=== PATIENT | female | born 1960 | race Caucasian/White ===

== ENCOUNTER → 2016-10-16 | Outpatient (CLI) | payer BC ==
--- NOTE | 2016-10-16 13:58 | MAMMOGRAPHY REPORT ---
UNILATERAL RIGHT DIGITAL DIAGNOSTIC MAMMOGRAM WITH CAD: 10/16/2016 CLINICAL HISTORY: 6 Month Follow-up Right. TECHNIQUE: Current study was also evaluated with a Computer Aided Detection (CAD) system. Right CC and MLO views and spot magnification right cc and ML views were obtained. COMPARISON: Comparison is made to exams dated: 04/03/2016 mammogram, 04/01/2016 mammogram, 02/28/2015 m ammogram, 02/22/2014 mammogram, 02/17/2013 mammogram, and 02/11/2012 mammogram - [facility] enter. BREAST COMPOSITION: There are scattered areas of fibroglandular density in the right breast. FINDINGS: Spot magnification views of the right breast again demonstrate a small faint 4 mm cluster of amorphous calcifications in the right upper outer quadrant. The calcifications appear similar t o other loosely grouped calcifications within the right upper outer quadrant which have been stable compared to prior exams. This cluster is stable on spot magnification views dated 04/03/2016. A bio psy marker clip is again noted in the right upper outer quadrant; the patient reports that the biops y was performed for calcifications although those images are not available for review. The calcific ations are probably benign given the similar appearance to other stable calcifications and given the stability for 6 months. The remainder of the right breast is stable compared to prior exams, without suspicious masses, calc ifications, or areas of architectural distortion noted. IMPRESSION: ACR-BI-RADS CATEGORY 3: PROBABLY BENIGN Small cluster of calcifications in the right upper outer quadrant is stable compared to the March 24 exam and is probably benign. Recommend bilateral diagnostic mammograms in 6 months, to reevalua te the right breast calcifications and for routine mammography of the left breast. The patient has been verbally notified of the results. Approximately 10% of breast cancers are not detected with mammography. A negative mammographic repor t should not delay biopsy if a clinically suggestive mass is present. Zhanna Mcfarlane M.D. /:10/16/2016 11:51:19 Pick Up Operator: Kim VERA)(Nick), [facility] letter sent: Follow Up Recommended 3 BI-RADS Code: ACR-BI-RADS Category 3: Probably Benign
== END | disposition home or self-care (01) ==
LOC: C.MAMM 10:55
PROVIDERS: ATTEND Family Medicine
DX: R92.1 Mammographic calcification found on diagnostic imaging of breast (principal)

== ENCOUNTER → 2017-04-16 | Outpatient (CLI) | payer BC ==
--- NOTE | 2017-04-16 13:35 | MAMMOGRAPHY REPORT ---
BILATERAL DIGITAL DIAGNOSTIC MAMMOGRAM TOMOSYNTHESIS WITH CAD: 04/16/2017 CLINICAL HISTORY: Interval follow-up of right breast calcifications. TECHNIQUE: Breast tomosynthesis in addition to standard 2D mammography was performed. Current study was also evaluated with a Computer Aided Detection (CAD) system. Bilateral CC and MLO 2-D and tomosy nthesis images and spot magnification right cc and ML views were obtained. COMPARISON: Comparison is made to exams dated: 10/16/2016 mammogram, 04/03/2016 mammogram, 04/01/2016 m ammogram, 02/28/2015 mammogram, 02/22/2014 mammogram, and 02/17/2013 mammogram - [facility]. BREAST COMPOSITION: There are scattered areas of fibroglandular density in both breasts. FINDINGS: Spot magnification views of the right breast again demonstrate loosely grouped amorphous ca lcifications within the right upper outer quadrant. The calcifications are stable on spot magnificat ion views dating back to the March 2016 exam. A biopsy marker clip is seen within the dominant grou ping of calcifications; the patient reported that the biopsy was performed for calcifications althoug h those images are not available for review. Given the stability on spot magnification views and giv en that a prior biopsy was performed which yielded benign pathology, the calcifications are considere d benign. The remainder of both breasts are stable compared to prior exams, without suspicious masses, calcific ations, or areas of architectural distortion noted. IMPRESSION: ACR BI-RADS CATEGORY 2: BENIGN There is no mammographic evidence of malignancy in either breast. A 1 year screening mammogram is rec ommended. The patient has been verbally notified of the results. Approximately 10% of breast cancers are not detected with mammography. A negative mammographic report should not delay biopsy if a clinically suggestive mass is present. Zhanna Mcfarlane M.D. /:04/16/2017 10:47:57 Gold Burnisher: Marianela VERA)(Nick), [facility] letter sent: Normal 1/2 BI-RADS Code: ACR BI-RADS Category 2: Benign
== END | disposition home or self-care (01) ==
LOC: C.MAMM 10:16
PROVIDERS: ATTEND Family Medicine
DX: R92.1 Mammographic calcification found on diagnostic imaging of breast (principal)

== ENCOUNTER 2024-12-16 20:10 | Observation (INO) ==
--- OUTSIDE RECORDS SUMMARY | 2024-12-16 20:14 | External Medical Summary ---
Author Name Unknown Address Unknown Organization [id number]:[facility] - [address] [place] [address] Laboratory Report Ordering Provider Test Date Status KELSI KAUR 11/22/2024 09:03:50 Final Normal: � � � <150 mg/ g creatinine
High: � � � � � 150-500 mg/g creatinine
Very High: � >500 mg/g creatinine
Nephrotic: � >3000 mg/g creatinine Observation Date Value Abnormality Reference (Units ) Status Protein/Creatinine [Ratio] in Urine 11/22/2024 09:03:50 75 <150 (mg/g ) Final Protein, Urine 11/22/2024 09:03:50 8 (mg/dL) Final Creatinine, Urine 11/22/2024 09:03:50 107 (mg/dL) Final Performing Location [facility] [address] [place] [address]
--- OUTSIDE RECORDS SUMMARY | 2024-12-16 20:14 | External Medical Summary | Summary of Care ---
Author Name Unknown Organization [facility] Address [address] [place] [address] Phone [phone] Care Team Providers Care Equipment Installer Name Role Phone Rosibel Bhagat Primary Care Provider Encounter Details Date Type Department Care Team (Late st Contact Info) Description 12/08/2024 Orders Only Hematology/Oncology, [facility] [address] [facility] [place] [phone] Cindi Sorto MD [address] [place] [address] Allergies Active Allergy Reactions Criticality Noted Date Comments Atorvastatin Muscle pain Low 07/30/2017 fogginess Evolocumab 11/23/2024 tachycardia documented as of this encounter (statuses as of 12/08/2024) Medications MULTIVITAMIN/IRON PO TABSIndications:Dys lipidemia, goal to be determined daily 0 9 Active Metoprolol Succinate ER 25 MG Oral Tablet Extended Release 24 Hour (toPROL XL)Indications:HTN, goal below 140/90 TAKE 1 TABLET IN THE MORNING 90 Tablet 3 4 Active Letrozole 2.5 MG Oral Tablet (Femara) Take 1 Tablet by mouth in the morning. Active Ezetimibe 10 MG Oral Tablet (Zetia)Indications: Mixed hyperlipidemia Take 1 Tablet by mouth in the morning. 90 Tablet 3 5 Active hydroCHLOROthiazide 25 MG Oral Tablet (Hydrodiuril)Indica tions:HTN, goal below 140/90 Take 1 Tablet by mouth in the morning. 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 · Gene: LIMA Variant: [id number] · This result is consistent with LIMA-related cancer risk Testing ordered by: Rosibel Bhagat DO Type of test: Bell-cancer panel ([facility]) Laboratory: [facility] -- full report in Scans Endometrial cancer 01/16/2021 Cancer Staging:Clinical stage from 02/07/2021:FIGO Stage IA(cT1a, cN0(sn), cM0) - Signed by Steven Ayala MD on 02/14/2021 Obesity, Class I, BMI 30.0-34.9 (see actual BMI) 04/14/2019 Familial hypercholesterolemia 04/14/2019 HTN, goal below 140/90 04/28/2013 documented as of this encounter (statuses as of 12/08/2024) Resolved Problems Problem Noted Date Diagnosed Date Resolved Date Prediabetes 04/14/2019 02/03/2024 NONE 04/10/2002 08/19/2018 NO KNOWN PROBLEMS 08/19/2018 documented as of this encounter (statuses as of 12/08/2024) Immunizations Name Administration Dates Next Due COVID-19 mRNA, LNP-s, No Pre serve, 2-Dose Series (Moderna) 11/15/2020,10/18/2020 Pneumococcal Conjugate Vacci ne, 20-valent ([id number]) 11/23/2024 Seasonal Influenza Vac., MDV , IM, 0.5 mL (Fluzone) 05/23/2013,05/23/2009(Deferred: Patient Refused) Seasonal Influenza, PF, 6 M & above, IM , (FluLaval or Fluzone) 06/14/2023,08/13/2022,05/22/2021,2019,07/05/2019 Seasonal Influenza, Quadriva lent, No Preserve, IM 06/11/2018,05/27/2017 Seasonal Influenza, Trivalen t, (IIV3), PF, (Fluzone) 09/19/2024 TDAP (age 10 and older)(Boostrix) 11/04/2023,01/2013 Zoster Vaccine Recombinant (Shingrix) 05/24/2020 ,03/01/2020 documented as of this encounter Social History Tobacco Use Types Packs/Day Years Used Date Smoking Tobacco: Never Smokeless Tobacco: Never Alcohol Use Standard Drinks/Week Comments Yes 0 (1 standard drink = 0.6 oz pur e alcohol) maybe once a month PHQ-2 Answer Date Recorded PHQ Adult Total Score 0 11/23/2024 Hunger Vital Sign Answer Date Recorded Within the past 12 months, y ou worried that your food would run out before you got the money to buy more. Never true 05/18/20 24 Within the past 12 months, t he food you bought just didn't last and you didn't have money to get more. Never true 05/18/2024 Childcare Answer Date Recorded Do you feel overwhelmed with taking care of a child, family member or friend? No 05/18/2024 Does your family need help f inding childcare? (Household - for ages 0-17 years) Not on file 05/18/2024 Clothing Answer Date Recorded Have you been unable to get clothing when it was really needed? No 05/18/2024 Is your family able to get c lothes or diapers when needed? (Household - for ages 0-17 years) Not on file 05/18/2024 Personal Safety Answer Date Recorded Do you feel unsafe or have concerns for your saf ety? No 05/18/2024 Do you have concerns for you r family's safety? (Household - for ages 0-17 years) Not on file 05/18/2024 Utilities Answer Date Recorded Do you have trouble paying y our heating, water, or electric bill? No 05/18/2024 Is your family able to pay t he heat, water, or electric bill? (Household - for ages 0-17 years) Not on file 05/18/2024 Does your family have access to good internet? (Household - for ages 0-17 years) Not on file 05/18/2024 Employment Status Answer Date Recorded Are you unemployed or without regular income? No 05/18/2024 Does the household have a re lar source of income? (Household - for ages 0-17 years) Not on file 05/18/2024 Social Connections Answer Date Recorded How often do you feel lonely or isolated from th ose around you? Never 05/18/2024 Financial Resource Strain Answer Date R ecorded Do you have any trouble payi ng for your medications, or do you think you might in the future? No 05/18/2024 Does your family have troubl e paying for medicine? (Household - for ages 0-17 years) Not on file 05/18/2024 Transportation Needs Answer Date Record ed Do you have trouble getting a ride to medical visits or work? (Adult - for ages 18 years and over) Not on file 05/18/2024 Does your family have a hard time getting a ride to doctors visits? (Household - for ages 0-17 years) Not on file 05/18/2024 Has lack of transportation k ept you from medical appointments, meetings, work, or from getting things needed for daily living? Check all that apply. No 05/18/2024 Do you (or your family) have trouble finding or paying for a ride (transportation)? (Household - for ages 0-17 years) Not on file 05/18/2024 Housing Stability Answer Date Recorded Do you currently live in a s helter or have no steady place to sleep at night? No 05/18/2024 Do you think you are at risk of becoming homeless? (Adult - for ages 18 years and over) Not on file 05/18/2024 Does your family worry about paying for your home or becoming homeless? (Household - for ages 0-17 years) Not on file 0 05/18/2024 Are you homeless or worried that you might be in the future? No 05/18/2024 Are you (or your family) tanner eless or worried that you might be in the future? (Household - for ages 0-17 years) Not on file Food Insecurity Answer Date Recorded Do you need food for this week? No 05/18/2024 Are you able to get enough f ood for your family? (Household - for ages 0-17 years) Not on file 05/18/2024 Does your family need food t his week? (Household - for ages 0-17 years) Not on file 05/18/2024 Do you always have enough fo od for your family? (Household - for ages 0-17 years) Not on file 05/18/2024 Food Insecurity Answer Date Recorded Within the past 12 months, y ou worried that your food would run out before you got the money to buy more. Never true 05/18/20 24 Within the past 12 months, t he food you bought just didn't last and you didn't have money to get more. Never true 05/18/2024 Do you need food for this week? 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 Not on file Not on file documented as of this encounter Plan of Treatment Upcoming Encounters Date Type Department Care Team (Late st Contact Info) Description 12/13/2024 8:10 AM EDT Laboratory Laboratory [facility] [place] [place] [address] [phone] [address] [address] [address] 12/20/2024 10:30 AM EDT Office Visit Hematology/Oncology [facility] [address] [phone] Erica Fox CRNP [address] [place] [address] [place] [address] 06/04/2025 8:00 AM EDT Laboratory Laboratory [facility] [place] [address] [place] [phone] [place], [facility] [address] [facility] [place] [address] 06/07/2025 9:00 AM EDT Office Visit Family Practice [facility] [place] [address] [place] [address] Rosibel Bhagat, [address] [facility] [place] [address] Scheduled Procedures Name Priority Associated Diagnoses Date/Ti me COLONOSCOPY FLEXIBLE PROXIMA L DIAGNOSTIC Recall Special screening for malignant neoplasms, colon Health Maintenance Due Date Last Done Comments Cologuard 2005 Fecal Occult Blood Test 2005 Sigmoidoscopy 2005 COVID-19 Vaccine (3 - Moderna risk series) 12/13/2020 11/15/2020, 10/18/2020 Colonoscopy 06/08/2024 06/08/2014, 06/08/2014 Colorectal Cancer Screening 06/08/2024 Mammogram 06/29/2025 06/29/2024, 08/2022, 03/20/2022, Additional history exists GFR 09/18/2025 09/18/2024, 05/24, 05/22/2024, Additional history exists Depression Screening 11/23/2025 11/23/2024 Albumin/Creatinine Ratio 10/28/2026 10/29/2023 Diabetes Screening 09/18/2027 09/18/2024, 1 , 05/22/2024, Additional history exists Lipid Panel 11/22/2029 11/22/2024, 03/2024, 08/13/2022, Additional history exists DTap/Tdap Vaccines (3 - Td or Tdap) 11/03/2033 11/04/2023, 04/28/2013 Zoster Vaccines Completed 05/24/2020, 03/01/2020 Cervical Cancer Screening Discontinued Pap Smear Discontinued 12/20/2020, 02/20, 10/13/2016, Additional history exists Influenza Vaccine (FLU shot) Completed 09/19/2024, 06/14/2023, 06/14/2023, Additional history exists Pneumococcal Vaccine: 50+ Years Completed 11/23/2024 HPV (Gardasil) Vaccine Aged Out No lo nger eligible based on patient's age to complete this topic HPV/Co-Test Discontinued Hepatitis B Vaccine Aged Out No longe r eligible based on patient's age to complete this topic MENINGOCOCCAL (MENACTRA/MENVEO) Aged Out No longer eligible based on patient's age to complete this topic Meningitis B Vaccine (Bexsero/Trumemba) Aged Out No longer eligible based on patient's age to complete this topic documented as of this encounter Medical Devices Implanted Type Area Cutter Down Device Identifier Shelf Expiration Date Model / Serial / Lot Lens Intraoc 15.0 - [id number] - [id number] Implanted:Qty: 1 on 02/25/2021 by Felice Resendiz MD at [facility] Right: Eye BAUSCH 08/22/2025 [id number] / [id number] / [id number] Lens Intraoc 14.5 - [id number] - [id number] Implanted:Qty: 1 on 03/04/2021 by Felice Resendiz MD at [facility] Left: Eye BAUSCH 09/22/2025 [id number] / [id number] / [id number] documented as of this encounter Procedures Procedure Name Priority Date/Time Associated Diagnosis Comments CT CHEST W CONTRAST Routine 12/06/2024 documented in this encounter Results * CT CHEST W CONTRAST (12/06/2024) Anatomical Region Laterality Modality Chest, Body, Cardio Other 12/06/2024 Damaris Suazo MD RAD CT Theresa l Result documented in this encounter Advance Directives * Full Code (Latest Code Status on File) Date Activated Date Inactivated Comments 02/07/2021 2:01 PM 02/07/2021 10:57 PM This order reflects the patients wishes and were consensually agreed upon. Question Answer Comments Discussion of Advance Directives occurred with: Not Discussed Care Teams Equipment Installer Relationship Specialty Start Date End Date Rosibel Bhagat DO [address] [place] [address] PCP - General Family Medicine 10/21/18 documented as of this encounter
--- OUTSIDE RECORDS SUMMARY | 2024-12-16 20:14 | External Medical Summary | Summary of Care ---
Author Name Unknown Organization [facility] Address [address] [facility] [address] Phone [phone] Care Team Providers Care Exerciser Name Role Phone Olayinka Gleasonflorentino Barrientos Primary Care Provider Reason for Visit * Reason Comments Outpatient Testing Encounter Details Date Type Department Care Team (Late st Contact Info) Description 11/22/2024 9:00 AM EDT Laboratory Laboratory [facility] [place] [facility] [address] [place] [phone] [place], [facility] [address] [place] [address] Screening for lipoid disorders; HTN, goal below 140/90 Allergies Active Allergy Reactions Criticality Noted Date Comments Atorvastatin Muscle pain Low 07/30/2017 fogginess documented as of this encounter (statuses as of 11/22/2024) Medications MULTIVITAMIN/IR ON PO TABSIndications :Dyslipidemia, goal to be determined daily 0 9 Active Prochlorperazin e Maleate 10 MG Oral Tablet (Compazine)Vannesa cations:Endomet rial cancer (HCC) Take 1 Tablet by mouth every 6 hours as needed for Nausea. 30 Tablet 4 Active Additional Information Patient not taking.Reported on 05/03/2024 traMADol HCl 50 MG Oral Tablet (Ultram)Indicat ions:Endometria l cancer (HCC) Take 1 Tablet by mouth every 6 hours as needed for Pain, Moderate. 30 Tablet 4 Active Additional Information Patient not taking.Reported on 06/12/2024 hydroCHLOROthia zide 12.5 MG Oral TabletIndicatio ns:HTN, goal below 140/90 TAKE 1 TABLET IN THE MORNING 90 Tablet 3 4 Active Metoprolol Succinate ER 25 MG Oral Tablet Extended Release 24 Hour (toPROL XL)Indications: HTN, goal below 140/90 TAKE 1 TABLET IN THE MORNING 90 Tablet 3 4 Active Ondansetron HCl 8 MG Oral TabletIndicatio ns:Endometrial cancer (HCC) Take 1 Tablet by mouth every 8 hours as needed for Nausea. 30 Tablet 2 4 Active dexAMETHasone 4 MG Oral TabletIndicatio ns:Endometrial cancer (HCC) Take 5 tab (20 mg) 12 and 6 hours before chemo 20 Tablet 4 Active Additional Information Patient not taking.Reported on 05/18/2024 Letrozole 2.5 MG Oral Tablet (Femara) Take 1 Tablet by mouth in the morning. 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 · Gene: LIMA Variant: [id number] · This result is consistent with LIAM-related cancer risk Testing ordered by: Rosibel Bhagat [...] as of this encounter (statuses as of 11/22/2024) Resolved Problems Problem Noted Date Diagnosed Date Resolved Date Prediabetes 04/14/2019 02/03/2024 NONE 04/10/2002 08/19/2018 NO KNOWN PROBLEMS 08/19/2018 documented as of this encounter (statuses as of 11/22/2024) Immunizations Name Administration Dates Next Due COVID-19 mRNA, LNP-s, No Pre serve, 2-Dose Series (Moderna) 11/15/2020,10/18/2020 Seasonal Influenza Vac., MDV , IM, 0.5 [...] once a month PHQ-2 Answer Date Recorded PHQ-2 Score 0 06/26/2018 Hunger Vital Sign Answer Date Recorded Within [...] No 05/18/2024 Does the household have a [facility] source of income? 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 [address] [place], [place] [address] Rosibel Bhagat, [address] [place], [place] [address] 12/13/2024 8:10 AM EDT Laboratory Laboratory [facility] [place] [address] [facility] [place] [phone] [place] [facility] [address] [facility] [place] [address] 12/20/2024 10:30 AM EDT Office Visit Hematology/Oncology [facility] [place] [address] [facility] [place] [phone] Erica Fox, [address] [place], [place] [phone] Pending Results Name Type Priority Associated Diagnoses Date /Time LIPID PANEL WITH DIRECT LDL IF TG IS HIGH Lab Routine Screening for lipoid disorders 11/22/2024 8:56 AM EDT PROTEIN/ CREATININE RATIO, URINE Lab Routine HTN, goal below 140/90 11/22/2024 9:03 AM EDT Scheduled Procedures Name Priority Associated Diagnoses Date/Ti ne COLONOSCOPY FLEXIBLE PROXIMA L DIAGNOSTIC Recall Special screening for malignant neoplasms, colon Health Maintenance Due Date Last Done Comments Depression Screening 1972 Cologuard 2005 Fecal Occult Blood Test 2005 Sigmoidoscopy 2005 Pneumococcal Vaccine: 50+ Years (1 of 1 - PCV) 2010 COVID-19 Vaccine ( season) 2024 11/15/2020, 10/18/2020 Colonoscopy 06/08/2024 06/08/2014, 06/08/2014 Colorectal Cancer Screening 06/08/2024 Mammogram 06/29/2025 06/29/2024, 11/0 08/2022, 03/20/2022, Additional history exists GFR 09/18/2025 09/18/2024, 10/2 08/2023, 05/22/2024, Additional history exists Albumin/Creatinine Ratio 10/28/2026 10/29/2023 Diabetes Screening 09/18/2027 09/18/2024, 1 , 05/22/2024, Additional history exists Lipid Panel 10/28/2028 10/29/2023, 07/24, 12/17/2020, Additional history exists DTap/Tdap Vaccines (3 - Td or Tdap) 11/03/2033 11/04/2023, 04/28/2013 Zoster Vaccines Completed 05/24/2020, 03/01/2020 Cervical Cancer Screening Discontinued Pap Smear Discontinued 12/20/2020, 02/20, 10/13/2016, Additional history exists Influenza Vaccine (FLU shot) Completed 09/19/2024, 06/14/2023, 08/13/2022, Additional history exists HPV (Gardasil) Vaccine Aged Out No lo [...] this encounter Medical Devices Implanted Type Area Senior Commercial Loan Officer Device Identifier Shelf Expiration Date Model / Serial / Lot Lens Intraoc 15.0 - [id number] - [id number] Implanted:Qty: 1 on 02/25/2021 by Felice Resendiz MD at [facility] Right: Eye BAUSCH & LOMB 08/22/2025 [id number] / [id number] / [id number] Lens Intraoc 14.5 - [id number] - [id number] Implanted:Qty: 1 on 03/04/2021 by Felice Resendiz MD at [facility] Left: Eye BAUSCH & LOMB 09/22/2025 [id number] / [id number] / [id number] documented as of this encounter Visit Diagnoses Diagnosis Screening for lipoid disorders HTN, goal below 140/90 Unspecified essential hypertension documented in this encounter Advance Directives * Full Code (Latest Code Status on File) Date Activated Date Inactivated Comments 02/07/2021 2:01 PM 02/07/2021 10:57 PM This order reflects the patients wishes and were consensually agreed upon. Question Answer Comments Discussion of Advance Directives occurred with: Not Discussed Care Teams Exerciser Relationship Specialty Start Date End Date Rosibel Bhagat DO [address] [place] [address] PCP - General Family Medicine 10/21/18 documented as of this encounter
--- OUTSIDE RECORDS SUMMARY | 2024-12-16 20:14 | External Medical Summary | Summary of Care ---
Author Name Unknown Organization [facility] Address [address] [facility] [address] Phone [phone] Care Team Providers Care Ball Sorter Name Role Phone Olayinka Gleasonflorentino Barrientos Primary Care Provider Reason for Visit * Reason Comments Outpatient Testing Encounter Details Date Type Department Care Team (Late st Contact Info) Description 11/22/2024 9:00 AM EDT Laboratory Laboratory [facility] [place] [facility] Bl[facility] [address] [place] [phone] [place], Lab Scenery [address] [place] [address] Screening for lipoid disorders; HTN, goal below [...] Completed 09/03/2022 Test Result: POSITIVE. · Gene: LMIA Variant: [id number] · This result is consistent [...] No 05/18/2024 Does the household have a [facility] source of income? 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 Not on file documented as of this encounter Plan of Treatment Upcoming Encounters Date Type Department Care Team (Late st Contact Info) Description 11/23/2024 8:00 AM EDT Office Visit Family Practice [facility] [address] [place], [place] [address] Rosibel Bhagat, [address] [place], [place] [address] 12/13/2024 8:10 AM EDT Laboratory Laboratory [facility] [place] [address] [facility] [place] [phone] [place] Lab [facility] [address] [facility] [place] [address] 12/20/2024 10:30 AM EDT Office Visit Hematology/Oncology [facility] [place] [address] [facility] [place] [phone] Erica Fox, [address] [place], [place] [id number] Pending Results Name Type Priority Associated Diagnoses Date /Time LIPID PANEL WITH DIRECT LDL IF TG IS HIGH Lab Routine Screening for lipoid disorders 11/22/2024 8:56 AM EDT PROTEIN/ CREATININE RATIO, URINE Lab Routine HTN, goal below 140/90 11/22/2024 9:03 AM EDT Scheduled Procedures Name Priority Associated Diagnoses Date/Ti nh COLONOSCOPY FLEXIBLE PROXIMA L DIAGNOSTIC Recall Special [...] this encounter Medical Devices Implanted Type Area Rod Buster Helper Device Identifier Shelf Expiration Date Model / Serial / Lot Lens Intraoc 15.0 - [id number] - [id number] Implanted:Qty: 1 on 02/25/2021 by Felice Resendiz MD at OR [facility] Right: Eye [employer] 08/22/2025 [id number] / [id number] / [id number] Lens Intraoc 14.5 - [id number] - [id number] Implanted:Qty: 1 on 03/04/2021 by Felice Resendiz MD at OR [facility] Left: Eye [employer] 09/22/2025 [id number] / [id number] / [id number] documented as of this encounter Visit Diagnoses [...] Directives occurred with: Not Discussed Care Teams Ball Sorter Relationship Specialty Start Date End Date Rosibel Bhagat DO [address] [place] [address] PCP - General Family Medicine 10/21/18 documented as of this encounter
--- OUTSIDE RECORDS SUMMARY | 2024-12-16 20:14 | External Medical Summary ---
Author Name Unknown Address Unknown Organization [facility] [place] [address] Laboratory Report Ordering Provider Test Date Status EDI SAGASTUME 12/14/2024 07:05:24 Final Observation Date Value Abnormality Reference (Units ) Status WBC, Total 12/14/2024 07:05:24 5.74 4.00-10.8 0 (K/uL) Final RBC 12/14/2024 07:05:24 4.31 3.85-5.15 (M/uL) Final Hemoglobin 12/14/2024 07:05:24 13.4 12.0-15.3 (g/dL) Final HCT 12/14/2024 07:05:24 40.2 36.0-45.2 (%) Final MCV 12/14/2024 07:05:24 93.3 81.5-97.5 (fL) Final MCH 12/14/2024 07:05:24 31.1 27.0-34.0 (pg) Final MCHC 12/14/2024 07:05:24 33.3 32.0-36.0 (g/dL) Final RDW 12/14/2024 07:05:24 13.3 11.5-15.5 (%) Final Platelets 12/14/2024 07:05:24 227 140-400 (K /uL) Final MPV 12/14/2024 07:05:24 8.4 6.6-11.1 ( fL) Final Performing Location [facility] [place] [address]
--- OUTSIDE RECORDS SUMMARY | 2024-12-16 20:14 | External Medical Summary | Summary of Care ---
Author Name Unknown Organization [facility] Address [address] [place] [address] Phone [phone] Care Team Providers Care Environmental Protection Geologist Name Role Phone Olayinka Gleasonflorentino Barrientos Primary Care Provider Reason for Visit * Reason Comments Outpatient Testing Encounter Details Date Type Department Care Team (Late st Contact Info) Description 12/14/2024 7:00 AM EDT Laboratory Laboratory [place] [facility]ia Blanco [address] [place] [phone] [place], Lab Scenery [address] [facility] [place] [address] Endometrial cancer (HCC) Allergies Active Allergy Reactions Criticality Noted Date Comments Atorvastatin Muscle pain Low 07/30/2017 fogginess Evolocumab 11/23/2024 tachycardia documented as of this encounter (statuses as of 12/14/2024) Medications MULTIVITAMIN/IRON PO TABSIndications:Dys lipidemia, goal to [...] as of this encounter (statuses as of 12/14/2024) Active Problems Problem Noted Date Diagnosed Date History of endometrial cancer 11/23/2024 History of metastatic malignant neoplasm 025 History of antineoplastic chemotherapy 5 S/P abdominal surgery, follow-up exam 05/18/2024 Encounter [...] as of this encounter (statuses as of 12/14/2024) Resolved Problems Problem Noted Date Diagnosed Date Resolved Date Prediabetes 04/14/2019 02/03/2024 NONE 04/10/2002 08/19/2018 NO KNOWN PROBLEMS 08/19/2018 documented as of this encounter (statuses as of 12/14/2024) Immunizations Name Administration Dates Next Due COVID-19 mRNA, LNP-s, No Pre serve, 2-Dose Series (Moderna) 11/15/2020,10/18/2020 Pneumococcal Conjugate Vacci ne, 20-valent ([id number]) 11/23/2024 Seasonal Influenza Vac., MDV , IM, [...] No 05/18/2024 Does the household have a [facility] source [facility] income? 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 Not on file documented as of this encounter Plan of Treatment Upcoming Encounters Date Type Department Care Team (Late st Contact Info) Description 12/20/2024 10:30 AM EDT Office Visit Hematology/Oncology [facility] [address] [place] [phone] Erica Fox CRNP [address] [facility] [place] [id number] 06/04/2025 8:00 AM EDT Laboratory Laboratory [facility] Baird [address] [place] [address] [phone] [address] [facility] [place] [address] 06/07/2025 9:00 AM EDT Office Visit Family Practice [facility] [place] [address] [facility] [place] [address] Rosibel Bhagat DO [address] [facility] [place] [address] Pending Results Name Type Priority Associated Diagnoses Date /Time COMPREHENSIVE METABOLIC PANEL Lab Routine Endometrial cancer (HCC) 12/14/2024 7:05 AM EDT Scheduled Procedures Name Priority Associated Diagnoses Date/Ti me COLONOSCOPY FLEXIBLE PROXIMA L DIAGNOSTIC Recall Special screening for malignant neoplasms, colon Health Maintenance Due Date Last Done Comments Cologuard 2005 Fecal Occult Blood Test 2005 Sigmoidoscopy 2005 COVID-19 Vaccine (3 - Moderna risk series) 12/13/2020 11/15/2020, 10/18/2020 Colonoscopy 06/08/2024 06/08/2014, 06/08/2014 Colorectal Cancer Screening 06/08/2024 Mammogram 06/29/2025 06/29/2024, 1108/2022, 03/20/2022, Additional history exists GFR 09/18/2025 09/18/2024, 05/24, 05/22/2024, Additional history exists Depression Screening 11/23/2025 11/23/2024 Albumin/Creatinine Ratio 10/28/2026 10/29/2023 Diabetes Screening 12/07/2027 12/06/2024, 0 09/18/2024, 06/12/2024, Additional history exists Lipid Panel 11/22/2029 11/22/2024, 03/0 03/2024, 08/13/2022, Additional history exists DTap/Tdap Vaccines [...] this encounter Medical Devices Implanted Type Area Admitting Counselor Device Identifier Shelf Expiration Date Model / Serial / Lot Lens Intraoc 15.0 - [id number] - [id number] Implanted:Qty: 1 on 02/25/2021 by Felice Resendiz MD at OR [facility] Right: Eye [employer] 08/22/2025 [id number] / [id number] / [id number] Lens Intraoc 14.5 - [id number] - [id number] Implanted:Qty: 1 on 03/04/2021 by Felice Resendiz MD at OR [facility] Left: Eye [employer] 09/22/2025 [id number] / [id number] / [id number] documented as of this encounter Procedures Procedure Name Priority Date/Time Associated Diagnosis Comments DIFFERENTIAL, AUTOMATED Routine 12/14/2024 7:05 AM EDT Endometrial cancer (HCC) CBC Routine 12/14/2024 7:05 AM EDT Endometrial cancer (HCC) CBC Routine 12/14/2024 7:05 AM EDT Endometrial cancer (HCC) documented in this encounter Results * (ABNORMAL) DIFFERENTIAL, AUTOMATED (12/14/2024 7:05 AM EDT) WBC 5.74 4.00 - 10.80 K/uL 12/14/2024 7:13 AM EDT [facility] 56-02 Neutrophils % 43.9 40.0 - 75.0 % 12/14/2024 7:13 AM EDT [facility] 56-02 Lymphocytes % 42.5(H) 18.0 - 42.0 % 12/14/2024 7:13 AM EDT [facility] 56-02 Monocytes % 9.1 1.0 - 11.0 % 12/14/2024 7:13 AM EDT [facility] 56-02 Eosinophils % 4.2 0.0 - 6.0 % 12/14/2024 7:13 AM EDT [facility] 56-02 Basophils % 0.3 0.0 - 2.0 % 12/14/2024 7:13 AM EDT [facility] 56-02 Absolute Neutrophils 2.52 1.80 - 7.70 K/uL 12/14/2024 7:13 AM EDT [facility] 56-02 Absolute Lymphocytes 2.44 1.00 - 4.80 K/ul 12/14/2024 7:13 AM EDT [facility] 56-02 Absolute Monocytes 0.52 0.00 - 1.10 K/uL 12/14/2024 7:13 AM EDT [facility] 56-02 Absolute Eosinophils 0.24 0.00 - 0.70 K/uL 12/14/2024 7:13 AM EDT [facility] 56-02 Absolute Basophils 0.02 0.00 - 0.20 K/uL 12/14/2024 7:13 AM EDT [facility] 56-02 Blood Venous blood specimen / Unknown Venipuncture / Unknown 12/14/2024 7:05 AM EDT 12/14/2024 7:05 AM EDT us Cindi Sorto MD LAB BLOOD ORDERABLES Fin al Result [facility] 56-[address] [place] [address] * CBC (12/14/2024 7:05 AM EDT) WBC 5.74 4.00 - 10.80 K/uL 12/14/2024 7:13 AM EDT [facility] 56-02 RBC 4.31 3.85 - 5.15 M/uL 12/14/2024 7:13 AM EDT [facility] 56 HGB 13.4 12.0 - 15.3 g/dL 12/14/2024 7:13 AM EDT [facility] 56 HCT 40.2 36.0 - 45.2 % 12/14/2024 7:13 AM EDT [facility] 56 MCV 93.3 81.5 - 97.5 fL 12/14/2024 7:13 AM EDT [facility] 56 MCH 31.1 27.0 - 34.0 pg 12/14/2024 7:13 AM EDT [facility] 56 MCHC 33.3 32.0 - 36.0 g/dL 12/14/2024 7:13 AM EDT [facility] 56 RDW 13.3 11.5 - 15.5 % 12/14/2024 7:13 AM EDT [facility] 56 PLT 227 140 - 400 K/uL 12/14/2024 7:13 AM EDT [facility] 56 MPV 8.4 6.6 - 11.1 fL 12/14/2024 7:13 AM EDT [facility] 56 Blood Venous blood specimen / Unknown Venipuncture / Unknown 12/14/2024 7:05 AM EDT 12/14/2024 7:05 AM EDT Cindi Sorto MD LAB BLOOD ORDERABLES Fin al Result [facility] 56 [address] [facility] [address] documented in this encounter Visit Diagnoses Diagnosis Endometrial cancer (HCC) Malignant neoplasm of corpus uteri, except isthmus documented in this encounter Advance Directives * Full Code (Latest Code Status on File) Date Activated Date Inactivated Comments 02/07/2021 2:01 PM 02/07/2021 10:57 PM This order reflects the patients wishes and were consensually agreed upon. Question Answer Comments Discussion of Advance Directives occurred with: Not Discussed Care Teams Environmental Protection Geologist Relationship Specialty Start Date End Date [facility] [address] [facility] [address] PCP - General Family Medicine 10/21/18 documented as of this encounter
--- OUTSIDE RECORDS SUMMARY | 2024-12-16 20:14 | External Medical Summary ---
Author Name Unknown Address Unknown Organization [facility] [place] [place] [address] Laboratory Report Ordering Provider Test Date Status EDI SAGASTUME 12/14/2024 07:05:24 Final Observation Date Value Abnormality Reference (Units ) Status SYNC LEUKOCYTES IN BLOOD BY AUTOMATED COUNT 12/14/2024 07:05:24 5.74 4.00-10.80 (K/uL) Final Segs 12/14/2024 07:05:24 43.9 40.0-75.0 (%) Final Lymphs % 12/14/2024 07:05:24 42.5 Above high normal 18.0-42.0 (%) Final Monos 12/14/2024 07:05:24 9.1 1.0-11.0 (%) Final Eosinophils 12/14/2024 07:05:24 4.2 0.0-6.0 (%) Final Basos 12/14/2024 07:05:24 0.3 0.0-2.0 (%) Final Absolute Segs 12/14/2024 07:05:24 2.52 1.80-7.70 (K/uL) Final Lymphs, absolute 12/14/2024 07:05:24 2.44 1.00-4.80 (K/ul) Final Monos, Abs 12/14/2024 07:05:24 0.52 0.00-1.10 (K/uL) Final Eos, Abs 12/14/2024 07:05:24 0.24 0.00-0.70 (K/uL) Final Basos, Abs 12/14/2024 07:05:24 0.02 0.00-0.20 (K/uL) Final Performing Location [facility] [place] [address]
--- OUTSIDE RECORDS SUMMARY | 2024-12-16 20:14 | External Medical Summary | Summary of Care ---
Author Name Unknown Organization [facility] Address [address] [place] [address] Phone [phone] Care Team Providers Care Custom Bike Builder Name Role Phone Rosibel Bhagat DO Primary Care Provider Reason for Visit * Reason Comments Follow Up Pt is here for michelle elkins follow up with no new concerns. Encounter Details Date Type Department Care Team (Latest Contact Info) Description 11/23/2024 8:00 AM EDT Office Visit Family Practice [facility] [place] [address] [facility] [place] [address] Rosibel Bhagat DO [address] [facility] [place] [address] HTN, goal below 140/90*; Neuropathy due to chemotherapeutic drug (HCC); History of antineoplastic chemotherapy; History of metastatic malignant neoplasm; Prophylactic use of letrozole; History of endometrial cancer; Monoallelic mutation of LIMA gene; Screening for depression; Mixed hyperlipidemia; Elevated fasting glucose; Obesity, Class I, BMI 30.0-34.9 (see actual BMI); Need for pneumococcal vaccination; Chronic left-sided low back pain with left-sided sciatica Allergies Active Allergy Reactions Criticality Noted Date Comments Atorvastatin Muscle pain Low 07/30/2017 fogginess Evolocumab 11/23/2024 tachycardia documented as of this encounter (statuses as of 11/23/2024) Medications MULTIVITAMIN/IRON PO TABSIndications:D yslipidemia, goal to be determined daily 0 05/23/20 09 Active Metoprolol Succinate ER 25 MG Oral Tablet Extended Release 24 Hour (toPROL XL)Indications:HT N, goal below 140/90 TAKE 1 TABLET IN THE MORNING 90 Tablet 3 01/26/20 24 Active Letrozole 2.5 MG Oral Tablet (Femara) Take 1 Tablet by mouth in the morning. Active Ezetimibe 10 MG Oral Tablet (Zetia)Indication s:Mixed hyperlipidemia Take 1 Tablet by mouth in the morning. 90 Tablet 3 11/24/19 25 Active hydroCHLOROthiazi de 25 MG Oral Tablet (Hydrodiuril)Vannesa cations:HTN, goal below 140/90 Take 1 Tablet by mouth in the morning. 90 Tablet 3 11/24/19 25 Active Prochlorperazine Maleate 10 MG Oral Tablet (Compazine)Indica tions:Endometrial cancer (HCC) Take 1 Tablet by mouth every 6 hours as needed for Nausea. 30 Tablet 01/05/20 24 025 Discontinued traMADol HCl 50 MG Oral Tablet (Ultram)Indicatio ns:Endometrial cancer (HCC) Take 1 Tablet by mouth every 6 hours as needed for Pain, Moderate. 30 Tablet 01/05/20 24 025 Discontinued hydroCHLOROthiazi de 12.5 MG Oral TabletIndications :HTN, goal below 140/90 TAKE 1 TABLET IN THE MORNING 90 Tablet 3 01/18/20 24 025 Discontinued Ondansetron HCl 8 MG Oral TabletIndications :Endometrial cancer (HCC) Take 1 Tablet by mouth every 8 hours as needed for Nausea. 30 Tablet 2 05/04/20 24 025 Discontinued dexAMETHasone 4 MG Oral TabletIndications :Endometrial cancer (HCC) Take 5 tab (20 mg) 12 and 6 hours before chemo 20 Tablet 05/04/20 24 025 Discontinued Ezetimibe 10 MG Oral Tablet (Zetia)Indication s:Mixed hyperlipidemia Take 1 Tablet by mouth in the morning. 90 Tablet 3 11/24/19 25 025 Discontinued(Re fill) hydroCHLOROthiazi de 25 MG Oral Tablet (Hydrodiuril) Take 1 Tablet by mouth in the morning. 90 Tablet 3 11/24/19 25 025 Discontinued(Re fill) documented as of this encounter (statuses as of 11/23/2024) Active Problems Problem Noted Date Diagnosed Date [...] as of this encounter (statuses as of 11/23/2024) Resolved Problems Problem Noted Date Diagnosed Date Resolved Date Prediabetes 04/14/2019 02/03/2024 NONE 04/10/2002 08/19/2018 NO KNOWN PROBLEMS 08/19/2018 documented as of this encounter (statuses as of 11/23/2024) Immunizations Name Administration Dates Next Due COVID-19 mRNA, LNP-s, No Pre serve, 2-Dose Series (Moderna) 11/15/2020,10/18/2020 Pneumococcal Conjugate Vacci ne, 20-valent ([id number]) 11/23/2024 Seasonal Influenza Vac., MDV , IM, [...] Date Smoking Tobacco: Never Smokeless Tobacco: Never Tobacco Cessation:Counseling Given: Not Answered Alcohol Use Standard Drinks/Week Comments Yes 0 [...] 05/18/2024 Does the household have a re gular source of income? 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 Not on file Not on file documented as of this encounter Last Filed Vital Signs Vital Sign Reading Time Taken Comments Blood Pressure 130/82 11/23/2024 8:09 AM EDT Pulse 66 11/23/2024 8:09 AM EDT Temperature 36.5 °C (97.7 °F) 11/23/2024 8:09 AM ED T Respiratory Rate - - Oxygen Saturation 97% 11/23/2024 8:09 AM EDT Inhaled Oxygen Concentration - - Weight 84.4 kg (186 lb) 11/23/2024 8:09 AM EDT Height 162.6 cm (5' 4") 11/23/2024 8:09 AM EDT Body Mass Index 31.93 11/23/2024 8:09 AM EDT documented in this encounter Progress Notes * Rosibel Bhagat, - 11/23/2024 8:34 AM EDT Images from the original note were not included. Subjective Norma Watters is a 64 year old female that presents for Follow Up (Pt is here for routine follow up with no new concerns.) Patient's past medical, surgical, family, and social history were reviewed. Medications, allergies, immunizations, and health care maintenance screenings were also reviewed. Onc OVN reviewed 08/2024: ASSESSMENT: 64-year-old female with a past medical history significant for hypertension hyperlipidemia, migraine headache and endometrial cancer referred with recurrent endometrial cancer metastasis to the abdominal wall. Patient has history of a stage IA grade 2 endometrioid adenocarcinoma. She underwent robotic assisted total laparoscopic hysterectomy with bilateral salpingo-oophorectomy for the uterus on Feb 07 2021. Pathology was positive for an endometrial adenocarcinoma endometrioid type FIGO grade 2involving 6 of 25 mm of the myometrium 5 right pelvic lymph nodes and 1 left pelvic lymph node wereall negative for tumor. As she had a 1A, G2 tumor no adjuvant therapy was recommended. Now she presented with the abdominal pain and CT scan shows 5.5 cm enhancing mass in the left oblique muscles and biopsies positive for metastatic endometrial cancer. PET scan was done on 12/31/2023 which shows FDG avid left anterior abdominal wall mass with no other evidence of any metastatic disease. Patient was seen by Dr. Jimenez and he agreed for preop chemotherapy. She received 3 cycles of combination of Taxol and carboplatin followed by follow-up CT scan done which unfortunately shows stable 5.5 cm mass with no evidence of new disease or progression. She went to [place] for 2nd opinion surgical resection of the tumor. She had surgery done by the actuarial manager Oncology and Plastic surgeon on 04/12/2024. Tumor was resected completely with negative margin and pathology consistent with metastatic adenocarcinoma consistent with endometrial origin. Postsurgically she was seen by the actuarial manager Oncology who recommended to continue chemotherapy for 2-3 more cycles. She received total of 5 cycles of chemotherapy (3 cycles before surgery and 2 cycles after the surgery), received last chemotherapy on 06/13/2024. Follow-up CT scan done on 07/28/2024 were negative for any metastatic or recurrent disease. Result of the recent blood tests are all stable in acceptable range. Currently she is taking letrozole recommended by the actuarial manager Oncology. Clinically she is doing well in excellent performance status. Physical examination is unremarkable. Discussed with the patient about diagnosis reviewed all the available blood tests and CT scan finding with her. PLAN: Return to clinic in 3 months with CBC and CMP. She will also continue follow with actuarial manager Oncology at [facility] [place] The patient voiced understanding of all of the above. All questions and concerns were addressed in an apparently satisfactory manner. Cindi Sorto MD IMPRESSION /PLAN: 1. Endometrial cancer (CMS/HCC) 2. Preop testing Cancer Staging No matching staging information was found for the patient. 1. 63 y.o. with recurrent G2 endometrioid endometrial cancer (MMRp, p53wt), isolated abdominal wallrecurrence -RA TLH BSO SLND 02/07/21 (6/25mm TX, -LVSI). Stage IA G2 endometrioid endometrial adenoca. No adjuvant therapy indicated. -First recurrence : 5.5cm anterior abdominal wall metastases, biopsy 11/25/23 c/w endometrial primary(Er, PAX8 positive, p53 wt) -Previously met with Dr. Austin of general surgery at [facility] to discuss surgical excision. Also met with Dr. Sorto of medical oncology at [facility] and planned for 3C carbo/taxol neoadjuvant, surgical resection, then additional three cycles. -Scheduled for PET 12/31/23 -Vaginal polyp on exam 12/30/23. Final pth: benign fibroepithelial polyp. -Line 1: Carbo/taxol C1 ???. Imaging after C3, stable 5.5cm L anterior abd wall metastasis. Received C4 ??? -Presenting today for consideration of interval surgical cytoreduction. 2. Genetics: -Germline: Bambi panel testing: LIMA pathogenic variant -Somatic: not yet done 3. Medical comorbidities: HTN, HLP 4. PSHx: RA TLH BSO SLND 2020 Plan: -Reviewed with pt my recommendation for interval cytoreduction now, followed by adjuvant 2-3C carbo/taxol. Then would recommend letrozole maintenance hormonal therapy and monitor closely for second recurrence with CT c/a/p q3mo for first one to two years then liberalize scans. -XL, resection of abdominal wall mass -Refer to Dr. Sotelo for combined surgery, complex reconstruction of anterior abd wall. Has consultation today. -Risks of surgery include complications of anesthesia, bleeding, damage to surrounding organs, infection, reoperation, ICU care, readmission. High risk of hernia reviewed. Consents signed. -Somatic testing, will be sent post-op. -CBC, CMP, T+S, EKG preop -No med clearance indicated -ERAS, spinal, no bowel prep -Presurgical counseling performed History of Present Illness Norma Watters is a 64 year old female with a history of cancer treatment who presents for a follow-up visit. She is here for a follow-up visit after undergoing surgery and chemotherapy for cancer treatment. She has not had a colonoscopy due to ongoing CT scans every three months for cancer monitoring and isconcerned about potential scar tissue or adhesions from previous surgery affecting a colonoscopy. She has not had a PET scan recently. She has received two COVID vaccines and is considering another one due to her increased risk post-chemotherapy. She has not had any significant illnesses during chemotherapy aside from nausea, vomiting, and severe body aches. She experiences neuropathy in her hands and feet, described as numbness rather than pain, and feelsoff balance, particularly after the last rounds of chemotherapy. This has improved over time, but she mentions running into doorways and feeling more off balance when tired. She has a history of high cholesterol and was previously on Repatha, which she discontinued after experiencing a severe reaction characterized by a high heart rate and inability to function. She alsocould not tolerate statins due to severe pain. She is considering restarting Zetia, although she notes it did not significantly lower her cholesterol previously. She acknowledges needing to improve her diet and exercise routine. Her blood pressure is generally in the 130s to 140s, and she is currently taking hydrochlorothiazide and metoprolol for blood pressure management and SVT. She experiences occasional swelling in her legs and fingers, particularly after consuming salty foods. She experiences menopausal symptoms such as hot flashes and fogginess, which she attributes to letrozole, a medication she finds difficult to tolerate due to severe aching in her legs and arms. Thesesymptoms improve after discontinuing the medication for a couple of weeks. She reports a history of cataracts, which were removed in 2019 or 2020. [place]. She experiences occasional sciatica-like pain down her left leg, which she manages with exercise and position changes. No significant digestive issues, blood in stool, or persistent swelling. Objective BP 130/82 (BP Site: Left Arm, BP Position: Sitting, BP Cuff Size: Regular) | Pulse 66 | Temp 97.7 °F (36.5 °C) (Tympanic) | Ht 5' 4" (1.626 m) | Wt 186 lb (84.4 kg) | LMP 03/12/2013 | SpO2 97% | BMI 31.93 kg/m² | BSA 1.95 m² 01/14/2024 02/03/2024 02/04/2024 02/28/2024 03/20/2024 BP AND WT. Systolic 144 151 143 -- 134 Systolic 132 Diastolic 88 82 95 -- 82 Diastolic 90 Weight 183 lb 6.4 oz 179 lb 180 lb 3.2 oz 181 lb 14.4 oz 183 lb Height Pulse 77 67 80 84 77 03/27/2024 05/03/2024 05/18/2024 05/22/2024 06/12/2024 06/13/2024 BP AND WT. Systolic 145 141 118 145 123 142 Diastolic 83 94 82 87 83 92 Weight 180 lb 180 lb 9.6 oz 184 lb 183 lb 183 lb 9.6 oz 185 lb 9.6 oz Height 64 in Pulse 76 73 72 75 80 89 09/19/2024 11/23/2024 BP AND WT. Systolic 144 130 Diastolic 92 82 Weight 184 lb 14.4 oz 186 lb Height 64 in Pulse 76 66 Physical Exam General: alert and no distress Head: Normocephalic, No masses, lesions, tenderness or abnormalities Eye Exam: PERRLA, extraocular movements intact, conjunctiva are pink and non- injected, sclera clear Ears: External ears normal, Canals clear, TM's Normal Oropharynx: no exudate, no erythema, lips, buccal mucosa, and tongue normal, and mucous membranes are moist Neck: supple, no adenopathy, no bruits, thyroid normal size, non-tender, without nodularity Lymph: no palpable lymphadenopathy Heart: regular rate & rhythm, no murmur, and no gallops Lungs: chest symmetric with normal AP diameter, no chest deformities noted, no chest wall tenderness, lungs clear to auscultation Pulses: carotid=2/4 w/o bruits Abdomen: abdomen soft, non-tender, normal bowel sounds, and no masses or organomegaly Extremities: less than 2 second capillary refill, no joint deformities, effusion, or inflammation Neuro Exam: alert & oriented x 3 with fluent speech, no focal motor/sensory deficits, gait normal, reflexes normal and symmetric Results Latest Reference Range & Units 05/23/09 10:16 03/05/11 08:10 05/03/15 09:41 10/13/16 09:59 02/10/18 12:58 04/12/19 08:14 07/01/19 10:21 02/05/20 09:18 02/21/20 07:08 12/17/20 08:43 08/13/22 08: 07:58 11/22/24 08:56 Triglycerides <=174 mg/dL 93 63 181 99 298 (H) 194 149 255 (H) 158 164 174 122 243 (H) Cholesterol <200 mg/dL 229 (H) 174 305 (H) 261 (H) 228 (H) 303 (H) 254 (H) 289 (H) 186 181 262 (H) 321 (H) 310 (H) Cholesterol-HDL Ratio - 5.1 5.0 8.0 7.3 6.2 8.2 NON-HDL CHOLESTEROL 0 - 159 mg/dL 217 (H) 251 (H) 148 Non-HDL Cholesterol <=159 mg/dL 143 223 (H) 279 (H) 278 (H) HDL Cholesterol >49 mg/dL 45 35 (L) 38 (L) 36 (L) 37 (L) 37 (L) 37 (L) 38 (L) 38 (L) 38 (L) 39 (L) 42 (L) 32 (L) LDL Cholesterol <=129 mg/dL 165 (H) 126 231 (H) 205 (H) 131 (H) UNINTERPRETABLE RESULT 187 (H) 200 (H) 116 110 188 (H) 255 (H) 229 (H) LDL Cholesterol (Direct Measure) 0 - 129 mg/dL NOT APPLICABLE NOT APPLICABLE NOT APPLICABLE 247 (H) Latest Reference Range & Units 12/10/23 11:09 12/21/23 13:52 12/30/23 19:28 12/31/23 11:43 01/10/24 13:39 02/03/24 07:39 02/28/24 07:27 03/20/24 07:26 03/27/24 07:55 04/12/24 13:03 04/13/24 05: 04:47 05/22/24 07:45 06/12/24 08:02 09/18/24 08:04 11/22/24 08:56 11/22/24 09:03 Triglycerides <=174 mg/dL 243 (H) Cholesterol <200 mg/dL 310 (H) Non-HDL Cholesterol <=159 mg/dL 278 (H) HDL Cholesterol >49 mg/dL 32 (L) LDL Cholesterol <=129 mg/dL 229 (H) SODIUM 135 - 146 mmol/L 139 138 139 138 142 140 (E) 142 (E) 139 140 141 POTASSIUM 3.5 - 5.1 mmol/L 4.0 3.7 3.8 3.7 3.8 4.3 (E) 3.9 (E) 3.8 3.5 4.1 CHLORIDE 98 - 107 mmol/L 100 102 102 99 105 105 (E) 107 (E) 102 102 103 CO2 22 - 32 mmol/L 29 25 22 23 25 23 28 28 BUN 6 - 20 mg/dL 16 13 13 15 14 14 (E) 15 (E) 15 14 15 CREATININE 0.5 - 1.0 mg/dL 0.7 0.9 0.8 0.6 0.7 0.7 0.69 (E) 0.75 (E) 0.7 0.7 0.7 EGFR >=60 mL/min >90 73 87 >90 >90 >90 97 (E) 89 (E) >90 90 90 ANION GAP 7 - 15 mmol/L 10 11 15 16 (H) 12 8 (E) 7 (E) 14 10 10 GLUCOSE 70 - 120 mg/dL 85 94 157 (H) 155 (H) 105 127 (E) 93 (E) 161 (H) 102 110 CALCIUM 8.4 - 10.2 mg/dL 9.7 9.3 9.9 9.8 9.4 8.3 (L) (E) 8.2 (L) (E) 10.0 9.4 9.9 Protein 6.0 - 8.3 g/dL 7.5 6.8 7.4 7.5 7.1 7.7 6.9 7.2 Glucose - POCT 70 - 120 mg/dL 94 CBC Rpt Rpt Rpt ! Rpt ! Rpt Rpt ! (E) Rpt ! (E) Rpt Rpt Rpt WBC 4.00 - 10.80 K/uL 10.27 7.95 13.98 (H) 12.59 (H) 7.35 9.4 (E) 7.0 (E) 9.59 7.26 6.31 RBC 3.85 - 5.15 M/uL 4.54 4.63 4.62 4.27 4.18 3.74 (L) (E) 3.54 (L) (E) 4.52 4.33 4.47 HGB 12.0 - 15.3 g/dL 13.9 14.1 14.1 13.4 13.1 11.8 (L) (E) 11.0 (L) (E) 14.5 13.7 13.9 HCT 36.0 - 45.2 % 42.2 42.1 41.3 38.9 39.1 36.3 (L) (E) 34.4 (L) (E) 42.5 40.5 41.7 MCV 81.5 - 97.5 fL 93.0 90.9 89.4 91.1 93.5 97.1 (E) 97.2 (E) 94.0 93.5 93.3 MCH 27.0 - 34.0 pg 30.6 30.5 30.5 31.4 31.3 31.6 (E) 31.1 (E) 32.1 31.6 31.1 MCHC 32.0 - 36.0 g/dL 32.9 33.5 34.1 34.4 33.5 32.5 (E) 32.0 (E) 34.1 33.8 33.3 RDW 11.5 - 15.5 % 12.7 12.5 13.3 14.1 14.5 14.6 (E) 14.4 (E) 12.3 12.2 12.2 PLT 140 - 400 K/uL 321 285 322 296 235 280 (E) 236 (E) 267 246 227 MPV 6.6 - 11.1 fL 8.5 8.2 8.1 7.9 8.3 8.2 8.0 8.5 CBC WITH WBC DIFFERENTIAL Rpt Rpt Rpt ! Rpt ! Rpt Rpt ! Rpt Rpt Absolute Neutrophils 1.80 - 7.70 K/uL 6.67 4.48 12.35 (H) 10.89 (H) 3.89 8.32 (H) 3.60 3.09 Absolute Lymphocytes 1.00 - 4.80 K/ul 2.42 2.37 1.47 1.51 2.40 1.19 2.73 2.55 Absolute Monocytes 0.00 - 1.10 K/uL 0.87 0.79 0.14 0.18 0.69 0.07 0.71 0.46 Absolute Eosinophils 0.00 - 0.70 K/uL 0.27 0.26 0.00 0.00 0.34 0.00 0.19 0.19 Absolute Basophils 0.00 - 0.20 K/uL 0.04 0.05 0.02 0.01 0.03 0.01 0.03 0.02 HEPATITIS B SURFACE ANTIGEN Rpt Hepatitis B Surface Antigen Negative Negative Hepatitis B Surface Antibody, Quantitative mIU/mL <3.5 HEPATITIS B SURFACE ANTIBODY Rpt Hepatitis B Surface Antibody, Interpretation NOT immune to Hepatitis B Virus Hepatitis B Surface Antibody, Qualitative Negative Hepatitis B Core Antibodies IgG and IgM Negative Negative Albumin 3.8 - 5.0 g/dL 4.2 4.0 4.6 4.3 4.0 4.3 4.2 4.4 AST 10 - 35 U/L 17 15 20 19 13 18 15 16 ALT 10 - 35 U/L 17 17 23 28 20 23 17 20 Alkaline Phosphatase 35 - 130 U/L 78 79 83 88 76 90 100 71 Bilirubin, Total <=1.2 mg/dL 0.2 0.2 0.2 0.2 0.3 0.2 <0.2 0.3 CA 125 <=38.1 U/mL 12.5 SURGICAL PATHOLOGY Rpt ! (E) Rpt (E) Rpt ! (C) (E) Protein/ Creatinine Ratio, Urine <150 mg/g 75 Protein, Random Urine mg/dL 8 Creatinine, Random Urine mg/dL 107 Assessment and Plan Assessment & Plan Peripheral neuropathy Numbness in hands and feet likely due to chemotherapy. Balance issues present, no falls reported. Hyperlipidemia Repatha discontinued due to elevated heart rate. Statins not tolerated. Zetia was ineffective but will be retried. Dietary improvements and increased exercise acknowledged. - Prescribe Zetia. - Encourage dietary modifications to lower cholesterol. - Encourage increased physical activity. Hypertension Blood pressure in 130s-140s. Managed with metoprolol and hydrochlorothiazide. Occasional edema withhigh salt intake. - Increase hydrochlorothiazide to 25 mg daily. - Monitor blood pressure at home. Endometrial adenocarcinoma Completed surgery and chemotherapy. On letrozole for recurrence prevention. Side effects include hot flashes and arthralgia. Discussing alternative estrogen blockers due to side effects. - Discuss alternative estrogen blockers with gynecological oncologist. - Monitor for recurrence. Colonoscopy screening Due for colonoscopy. CT scans not ideal for early detection. Colonoscopy recommended for early detection. Discussion with oncologist advised. - Discuss colonoscopy with oncologist. - Consider scheduling colonoscopy. Vaccinations Eligible for pneumococcal vaccine due to age and chemotherapy. Benefits and minimal risks discussed. - Administer pneumococcal vaccine. COVID-19 vaccination Received two COVID-19 vaccines. Discussed potential benefit of additional vaccine due to increased risk post-chemotherapy and approaching age 65. - Consider additional COVID-19 vaccination. Follow-up Follow up in six months for routine evaluation and colonoscopy discussion. Fasting labs and A1c to be checked before next visit. - Schedule follow-up appointment in six months. - Order fasting labs before next visit. - Check A1c to monitor glucose levels. HTN, goal below 140/90 (Primary) - hydroCHLOROthiazide 25 MG Oral Tablet (Hydrodiuril); Take 1 Tablet by mouth in the morning. Neuropathy due to chemotherapeutic drug (HCC) History of antineoplastic chemotherapy History of metastatic malignant neoplasm Prophylactic use of letrozole History of endometrial cancer Monoallelic mutation of LIAM gene Screening for depression - DEPRESSION SCREENING PERFORMED Mixed hyperlipidemia - Ezetimibe 10 MG Oral Tablet (Zetia); Take 1 Tablet by mouth in the morning. - LIPID PANEL WITH DIRECT LDL IF TG IS HIGH; Future; Expected date: 11/23/2024 Elevated fasting glucose - HEMOGLOBIN A1C; Future; Expected date: 11/23/2024 Obesity, Class I, BMI 30.0-34.9 (see actual BMI) Need for pneumococcal vaccination - PNEUMOCOCCAL VACC, PCV20, IM ([id number]) Chronic left-sided low back pain with left-sided sciatica Wrap-Up Follow Up: Return in about 6 months (around 05/25/2025), or if symptoms worsen or fail to improve, for Clinic Visit, Fasting Labs 2-5 Days Before Next Visit. | For: Clinic Visit, Fasting Labs 2-5 DaysBefore Next Visit I spent a total of 30-39 minutes (exact time 35 mins) on the date of service in preparation, delivery, and documentation of the care provided to Norma Watters excluding any time spent in the performance of separately billed services. Text in this note was generated using an ambient documentation service. I discussed the use of a device to record and summarize our discussion today. All persons present during the encounter consented to its use. Rosibel Bhagat DO documented in this encounter Nursing Notes * Yao Arteaga CMA - 11/23/2024 8:13 AM EDT The patient has been properly identified by confirmation of name and date of . Chief Complaint Patient presents with Follow Up Pt is here for routine follow up with no new concerns. documented in this encounter Plan of Treatment Upcoming Encounters Date Type Department Care Team (Late st Contact Info) Description 12/13/2024 8:10 AM EDT Laboratory Laboratory [facility] [place] [address] [place] [id number] [facility] [address] [facility] [place] [id number] 12/20/2024 10:30 AM EDT Office Visit Hematology/Oncology [facility] [place] [address] [place] [id number] Erica Fox, TERRA [address] [place] [id number] 06/04/2025 8:00 AM EDT Laboratory Laboratory [facility] [place] [address] [place] [phone] [place] [facility] [address] [facility] [place] [id number] 06/07/2025 9:00 AM EDT Office Visit Family Practice [facility] [place] [address] [place] [address] Rosibel Bhagat DO [address] [facility] [address] [facility] [place] [id number] Scheduled Orders Name Type Priority Associated Diagnoses Orde r Schedule LIPID PANEL WITH DIRECT LDL IF TG IS HIGH Lab Routine Mixed hyperlipidemia Expected: 11/23/2024, Expires: 11/23/2025 HEMOGLOBIN A1C Lab Routine Elevated fasting glucose Expected: 11/23/2024 (Approximate), Expires: 11/23/2025 Scheduled Procedures Name Priority Associated Diagnoses Date/Ti [...] Additional history exists Lipid Panel 11/22/2029 11/22/2024, 0303/2024, 08/13/2022, Additional history exists DTap/Tdap Vaccines (3 [...] this encounter Medical Devices Implanted Type Area Diesel Engine Operator Device Identifier Shelf Expiration Date Model / Serial / Lot Lens Intraoc 15.0 - [id number] - [id number] Implanted:Qty: 1 on 02/25/2021 by Feliec Resendiz MD at [facility] Right: Eye [employer] 08/22/2025 [id number] / [id number] / [id number] Lens Intraoc 14.5 - [id number] - [id number] Implanted:Qty: 1 on 03/04/2021 by Felice Resendiz MD at [facility] Left: Eye [employer] 09/22/2025 [id number] / [id number] / [id number] documented as of this encounter Visit Diagnoses Diagnosis HTN, goal below 140/90- Primary Unspecified essential hypertension Neuropathy due to chemotherapeutic drug (HCC) Polyneuropathy due to drugs History of antineoplastic chemotherapy Personal history of antineoplastic chemotherapy History of metastatic malignant neoplasm Prophylactic use of letrozole Use of aromatase inhibitors History of endometrial cancer Personal history of malignant neoplasm of other parts of uterus Monoallelic mutation of LIMA gene Screening for depression Mixed hyperlipidemia Elevated fasting glucose Impaired fasting glucose Obesity, Class I, BMI 30.0-34.9 (see actual BMI) Obesity, unspecified Need for pneumococcal vaccination Need for prophylactic vaccination against streptococcus pneumoniae (pneumococcus) Chronic left-sided low back pain with left-sided sciatica documented in this encounter Advance Directives * Full Code (Latest Code Status on File) Date Activated Date Inactivated Comments 02/07/2021 2:01 PM 02/07/2021 10:57 PM This order reflects the patients wishes and were consensually agreed upon. Question Answer Comments Discussion of Advance Directives occurred with: Not Discussed Care Teams Custom Bike Builder Relationship Specialty Start Date End Date Rosibel Bhagat DO [address] [place], [place] [address] PCP - General Family Medicine 3/1/19 documented as of this encounter
--- OUTSIDE RECORDS SUMMARY | 2024-12-16 20:14 | External Medical Summary ---
Author Name Unknown Address Unknown Organization [id number]:[facility] [place] [address] [facility] [place] [address] Laboratory Report Ordering Provider Test Date Status KELSI KAUR 11/22/2024 08:56:30 Final Observation Date Value Abnormality Reference (Units ) Status Triglyceride 11/22/2024 08:56:30 243 Above high normal <=174 (mg/dL) Final Triglyceride Reference Range s (mg/dL):
<150 Acceptable
150-174 Borderline high
175-499 High
>=500 Very high Cholesterol 11/22/2024 08:56:30 310 Above high normal <200 (mg/dL) Final Total Cholesterol Reference Ranges (mg/dL):
<200 Desirable
200-239 Borderline high
>=240 High HDL 11/22/2024 08:56:30 32 Below low normal >49 (mg/dL) Final HDL Cholesterol Reference Ra nges (mg/dL):
>=60 High (Desirable)
<50 Low (Undesirable) For Females
<40 Low (Undesirable) For Males NON-HDL CHOLESTEROL 11/22/2024 08:56:30 278 Above high normal <=159 (mg/dL) Final Non-HDL Cholesterol Referenc e Range (mg/dL):
<100 Target level for high risk ASCVD patient
<130 Optimal for general population
130-159 Near optimal for general population
160-189 Borderline High
190-219 High
>=220 Very High LDL, (calculated) 11/22/2024 08:56:30 229 Above high n ormal <=129 (mg/dL) Final LDL Cholesterol Reference Ra nges (mg/dL):
<70 Target level for high risk ASCVD patient
<100 Optimal for general population
100-129 Near optimal for general population
130-159 Borderline high
160-189 High
>=190 Very high
Patient has high LDL cholesterol. Consider screening for Familial Hypercholesterolemia. Performing Location [facility] [place] [address] [facility] [address]
--- OUTSIDE RECORDS SUMMARY | 2024-12-16 20:14 | External Medical Summary ---
Author Name Unknown Address Unknown Organization [id number]:[facility] [place] [facility] [address] - [address] [place] [address] Laboratory Report Ordering Provider Test Date Status EDI SAGASTUME 12/14/2024 07:05:24 Final Observation Date Value Abnormality Reference (Units ) Status BUN 12/14/2024 07:05:24 16 6-20 (mg/dL) Final Creatinine 12/14/2024 07:05:24 0.8 0.5-1.0 (mg/dL) Final Glomerular filtration rate/1.73 sq M.predicted [Volume Rate/Area] in Serum, Plasma or Blood by Creatinine-based formula (CKD-EPI) 12/14/2024 07:05:24 89 >=60 (mL/min) Final eGFR is calculated based on the CKD-EPI 2020 equation. Sodium 12/14/2024 07:05:24 142 135-146 (m mol/L) Final Potassium 12/14/2024 07:05:24 3.5 3.5-5.1 (m mol/L) Final Cl 12/14/2024 07:05:24 102 98-107 (mm ol/L) Final CO2 12/14/2024 07:05:24 28 22-32 (mmo l/L) Final Anion gap 12/14/2024 07:05:24 12 7-15 (mmol /L) Final Glucose 12/14/2024 07:05:24 101 70-120 (mg /dL) Final Albumin 12/14/2024 07:05:24 4.3 3.8-5.0 (g /dL) Final AST (Aspartate aminotransferase) 12/14/2024 07:05:24 19 10-35 (U/L) Final Alk Phos 12/14/2024 07:05:24 76 35-130 (U/ L) Final Bilirubin, Total 12/14/2024 07:05:24 0.4 <=1 .2 (mg/dL) Final Calcium 12/14/2024 07:05:24 9.5 8.4-10.2 ( mg/dL) Final Protein 12/14/2024 07:05:24 6.8 6.0-8.3 (g /dL) Final ALT (Alanine aminotransferase) 12/14/2024 07:05:24 20 10-35 (U/L) Final Performing Location [facility] [place] [facility] [place] [address]
--- OUTSIDE RECORDS SUMMARY | 2024-12-16 20:14 | External Medical Summary | Summary of Care ---
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 Not on file Not on file documented as of this encounter Plan of Treatment Upcoming Encounters Date Type Department Care Team (Late st Contact Info) Description 12/13/2024 8:10 AM EDT Laboratory Laboratory [facility] [place] [address] [place] [phone] [place] [address] 12/20/2024 10:30 AM EDT Office Visit Hematology/Oncology [facility] [place] [address] [place] [phone] [facility] [address] [facility] [id number] 06/04/2025 8:00 AM EDT [facility] [place] [address] [place] [phone] [address] [facility] [place] [address] 06/07/2025 9:00 AM EDT Office Visit Family Practice [facility] [place] [address] [place] [address] Rosibel Bhagat, [address] [facility] [place] [address] Scheduled Procedures Name Priority Associated Diagnoses Date/Ti [...] this encounter Medical Devices Implanted Type Area Mechanical Fitter Device Identifier Shelf Expiration Date Model / Serial / Lot Lens Intraoc 15.0 - [id number] - [id number] Implanted:Qty: 1 on 02/25/2021 by Felice Resendiz MD at OR [facility] Right: Eye BAUSCH 08/22/2025 [id number] / [id number] / [id number] Lens Intraoc 14.5 - [id number] - [id number] Implanted:Qty: 1 on 03/04/2021 by Felice Resendiz MD at OR [facility] Left: Eye BAUSCH 09/22/2025 [id number] / [id number] / [id number] documented as of this encounter Procedures Procedure Name Priority Date/Time Associated Diagnosis Comments RADIOLOGY SCANNED RESULT 12/06/2024 documented in this encounter Results * RADIOLOGY SCANNED RESULT (12/06/2024) 12/06/2024 us No Physician Data Unknown DIAGNOSTIC RADIOLOGY S ERVICES Final Result documented in this encounter Advance Directives * Full Code (Latest Code Status on File) Date Activated Date Inactivated Comments 02/07/2021 2:01 PM 02/07/2021 10:57 PM This order reflects the patients wishes and were consensually agreed upon. Question Answer Comments Discussion of Advance Directives occurred with: Not Discussed Care Teams Risk Officer Relationship Specialty Start Date End Date Rosibel Bhagat DO [address] [place] [address] PCP - General Family Medicine 10/21/18 documented as of this encounter
--- OUTSIDE RECORDS SUMMARY | 2024-12-16 20:15 | External Medical Summary ---
Author Name Unknown Address Unknown Organization K09:[facility] [place] [address] Laboratory Report Ordering Provider Test Date Status EDI SAGASTUME 09/18/2024 08:04:50 Final Observation Date Value Abnormality Reference (Units ) Status SYNC LEUKOCYTES IN BLOOD BY AUTOMATED COUNT 09/18/2024 08:04:50 6.31 4.00-10.80 (K/uL) Final Segs 09/18/2024 08:04:50 49.0 40.0-75.0 (%) Final Lymphs % 09/18/2024 08:04:50 40.4 18.0-42.0 (%) Final Monos 09/18/2024 08:04:50 7.3 1.0-11.0 (%) Final Eosinophils 09/18/2024 08:04:50 3.0 0.0-6.0 (%) Final Basos 09/18/2024 08:04:50 0.3 0.0-2.0 (%) Final Absolute Segs 09/18/2024 08:04:50 3.09 1.80-7.70 (K/uL) Final Lymphs, absolute 09/18/2024 08:04:50 2.55 1.00-4.80 (K/ul) Final Monos, Abs 09/18/2024 08:04:50 0.46 0.00-1.10 (K/uL) Final Eos, Abs 09/18/2024 08:04:50 0.19 0.00-0.70 (K/uL) Final Basos, Abs 09/18/2024 08:04:50 0.02 0.00-0.20 (K/uL) Final Performing Location [facility] [place] [address]
--- OUTSIDE RECORDS SUMMARY | 2024-12-16 20:15 | External Medical Summary | Summary of Care ---
Author Name Unknown Organization [facility] Address [address] [place] [address] Phone [phone] Care Team Providers Care Construction Engineer Name Role Phone Rosibel Bhagat DO Primary Care Provider Reason for Visit * Reason Onset Date Comments Health Maintenance 06/28/2024 Encounter Details Date Type Department Care Team (Late st Contact Info) Description 06/28/2024 Telephone Family Practice [facility] [address] [facility] [place] [address] Rosibel Bhagat DO [address] [facility] [place] [address] Health Maintenance Allergies Active Allergy Reactions Criticality Noted Date Comments Atorvastatin Muscle pain Low 07/30/2017 fogginess documented as of this encounter (statuses as of 06/29/2024) Medications Medication Sig Dispensed Refills Start Date End Date Status MULTIVITAMIN/IRON PO TABSIndications:Dys lipidemia, goal to be determined daily 0 05/23/2009 Active Prochlorperazine Maleate 10 MG Oral Tablet (Compazine)Indicati ons:Endometrial cancer (HCC) Take 1 Tablet by mouth every 6 hours as needed for Nausea. 30 Tablet 01/05/2024 Active Additional Information Patient not taking.Reported on 05/03/2024 traMADol HCl 50 MG Oral Tablet (Ultram)Indications :Endometrial cancer (HCC) Take 1 Tablet by mouth every 6 hours as needed for Pain, Moderate. 30 Tablet 01/05/2024 Active Additional Information Patient not taking.Reported on 06/12/2024 hydroCHLOROthiazide 12.5 MG Oral TabletIndications:H TN, goal below 140/90 TAKE 1 TABLET IN THE MORNING 90 Tablet 3 01/18/2024 Active Metoprolol Succinate ER 25 MG Oral Tablet Extended Release 24 Hour (toPROL XL)Indications:HTN, goal below 140/90 TAKE 1 TABLET IN THE MORNING 90 Tablet 3 01/26/2024 Active Ondansetron HCl 8 MG Oral TabletIndications:E ndometrial cancer (HCC) Take 1 Tablet by mouth every 8 hours as needed for Nausea. 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 · Gene: LIMA Variant: [id number] · This result is consistent with LIMA-related cancer risk Testing ordered by: Rosibel Bhagat, Type of test: Bell-cancer panel ([facility] Test) Laboratory: [facility] -- full report in Scans Endometrial cancer 01/16/2021 Cancer Staging:Clinical stage from 02/07/2021:FIGO Stage IA(cT1a, cN0(sn), cM0) - Signed by Steven Ayala MD on 02/14/2021 Obesity, Class I, BMI 30.0-34.9 (see actual BMI) 04/14/2019 Familial hypercholesterolemia 04/14/2019 HTN, goal below 140/90 04/28/2013 documented as of this encounter (statuses as of 06/29/2024) Resolved Problems Problem Noted Date Diagnosed Date Resolved Date Prediabetes 04/14/2019 02/03/2024 NONE 04/10/2002 08/19/2018 NO KNOWN PROBLEMS 08/19/2018 documented as of this encounter (statuses as of 06/29/2024) Immunizations Name Administration Dates Next Due COVID-19 mRNA, LNP-s, No Pre serve, 2-Dose Series (Moderna) 11/15/2020,10/18/2020 Seasonal Influenza Vac., MDV , IM, 0.5 mL (Fluzone) 05/23/2013,05/23/2009(Deferred: Patient Refused) Seasonal Influenza, PF, 6 M & above, IM , (FluLaval or Fluzone) 06/14/2023,08/13/2022,05/22/2021,2019,07/05/2019 Seasonal Influenza, Quadriva lent, No Preserve, IM 06/11/2018,05/27/2017 TDAP (age 10 and older)(Boostrix) 11/04/2023,01/2013 Zoster [...] ages 0-17 years) Not on file 05/18/2024 Sex and Gender Information Value Date Recorded Sex Assigned at Female 02/03/2023 11:38 AM EDT Gender Identity Female 02/03/2023 11:38 AM EDT Sexual Orientation Straight 02/03/2023 11 :38 AM EDT Job Start Date Occupation Industry Not on file Not on file Not on file documented as of this encounter Miscellaneous Notes * Telephone Encounter - Debi Martins LPN - 06/28/2024 10:33 AM EST Care Gaps Comprehensive Care Outreach Last Office/Telemedicine Visit: 05/18/2024 (in office), Visit date not found (telemedicine) Next Office Visit: 11/23/2024 Hemoglobin AIC Results: Lab Results Component Value Date/Time HEMOGLOBIN A1C - [facility] 5.7 (H) 10/29/2023 07:58 AM HEMOGLOBIN A1C - [facility] 5.8 (H) 08/13/2022 08:39 AM HEMOGLOBIN A1C - [facility] 5.6 12/17/2020 08:43 AM BP Readings from Last 1 Encounters: 06/13/24 142/92 Reviewed Health Maintenance below: Health Maintenance Topic Date Due Depression Screening 07/30/2018 Influenza Vaccine (FLU shot) (1) 04/23/2024 COVID-19 Vaccine (3 - season) 2024 Colorectal Cancer Screening 06/08/2024 Mammogram 06/23/2024 Mamm nov Colon postponed until recovery from cancer treatment per pcp Care Gap Outreach Action Taken: [facility] message sent documented in this encounter Plan of Treatment Upcoming Encounters Date Type Department Care Team (Late st Contact Info) Description 06/29/2024 10:30 AM EST Imaging Radiology [address], [place] [address] [facility] [place] [address] 09/12/2024 7:40 AM EST Laboratory Laboratory [facility] [address] [place] [phone] [place] [facility] [address] [facility] [place] [address] 09/19/2024 8:00 AM EST Office Visit Hematology/Oncology [facility] [address] [place] [address] Cindi Sorto MD [address] [place] [address] 11/23/2024 8:20 AM EDT Office Visit Family Practice [facility] [address] [place] [address] Rosibel Bhagat DO [address] [place] [address] Scheduled Procedures Name Priority Associated Diagnoses Date/Ti me COLONOSCOPY FLEXIBLE PROXIMA L DIAGNOSTIC Recall Special screening for malignant neoplasms, colon Health Maintenance Due Date Last Done Comments Cologuard 2005 Fecal Occult Blood Test 2005 Sigmoidoscopy 2005 Depression Screening 07/30/2018 07/30/2017 COVID-19 Vaccine ( season) 2024 11/15/2020, 10/18/2020 Influenza Vaccine (FLU shot) (#1) 2024 06/14/2023, 08/13/2022, 05/22/2021, Additional history exists Colonoscopy 06/08/2024 06/08/2014, 06/08/2014 Colorectal Cancer Screening 06/08/2024 Mammogram 06/23/2024 06/23/2023, 02/21, 03/14/2021, Additional history exists GFR 06/12/2025 06/12/2024, 04/25, 04/14/2024, Additional history exists Albumin/Creatinine Ratio 10/28/2026 10/29/2023 Diabetes Screening 06/12/2027 06/12/2024, 0 05/22/2024, 04/14/2024, Additional history exists Lipid Panel 10/28/2028 10/29/2023, 07/24, 12/17/2020, Additional history exists DTap/Tdap Vaccines (3 - Td or Tdap) 11/03/2033 11/04/2023, 04/28/2013 Zoster Vaccines Completed 05/24/2020, 03/01/2020 Cervical Cancer Screening Discontinued Pap Smear Discontinued 12/20/2020, 02/20, 10/13/2016, Additional history exists HPV (Gardasil) Vaccine Aged Out No lo nger eligible based on patient's age to complete this topic HPV/Co-Test Discontinued Hepatitis B Vaccine Aged Out No longe r eligible based on patient's age to complete this topic MENINGOCOCCAL (MENACTRA/MENVEO) Aged Out No longer eligible based on patient's age to complete this topic Pneumococcal Vaccine: Pediatrics (0 to 5 Years) and At-Risk Patients (6 to 64 Years) Aged Out No longer eligible based on patient's age to complete this topic documented as of this encounter Medical Devices Implanted Type Area Php Developer Device Identifier Shelf Expiration Date Model / Serial / Lot Lens Intraoc 15.0 - [id number] - [id number] Implanted:Qty: 1 on 02/25/2021 by Felice Resendiz MD at OR [facility] Right: Eye BAUSCH & LOMB 08/22/2025 [id number] / [id number] / [id number] Lens Intraoc 14.5 - [id number] - [id number] Implanted:Qty: 1 on 03/04/2021 by Felice Resendiz MD at OR [facility] Left: Eye BAUSCH & LOMB 09/22/2025 [id number] / [id number] / [id number] documented as of this encounter Advance Directives * Full Code (Latest Code Status on File) Date Activated Date Inactivated Comments 02/07/2021 2:01 PM 02/07/2021 10:57 PM This order reflects the patients wishes and were consensually agreed upon. Question Answer Comments Discussion of Advance Directives occurred with: Not Discussed Care Teams Construction Engineer Relationship Specialty Start Date End Date Rosibel Bhagat DO [address] [place] [facility] [place] [address] PCP - General Family Medicine 10/21/18 documented as of this encounter
--- OUTSIDE RECORDS SUMMARY | 2024-12-16 20:15 | External Medical Summary ---
Author Name Unknown Address Unknown Organization K09:[facility] [place] [address] Laboratory Report Ordering Provider Test Date Status EID SAGASTUME 09/18/2024 08:04:50 Final Observation Date Value Abnormality Reference (Units ) Status WBC, Total 09/18/2024 08:04:50 6.31 4.00-10.8 0 (K/uL) Final RBC 09/18/2024 08:04:50 4.47 3.85-5.15 (M/uL) Final Hemoglobin 09/18/2024 08:04:50 13.9 12.0-15.3 (g/dL) Final HCT 09/18/2024 08:04:50 41.7 36.0-45.2 (%) Final MCV 09/18/2024 08:04:50 93.3 81.5-97.5 (fL) Final MCH 09/18/2024 08:04:50 31.1 27.0-34.0 (pg) Final MCHC 09/18/2024 08:04:50 33.3 32.0-36.0 (g/dL) Final RDW 09/18/2024 08:04:50 12.2 11.5-15.5 (%) Final Platelets 09/18/2024 08:04:50 227 140-400 (K /uL) Final MPV 09/18/2024 08:04:50 8.5 6.6-11.1 ( fL) Final Performing Location [facility] [address] [place] [address]
--- OUTSIDE RECORDS SUMMARY | 2024-12-16 20:15 | External Medical Summary | Summary of Care ---
Author Name Unknown Organization [facility] Address [address] [place] [address] Phone [phone] Care Team Providers Care Reimbursement Auditor Name Role Phone Rosibel Bhagat Primary Care Provider Reason for Visit * Reason Comments Chemotherapy C5 D1 Taxol and Carb o * Episode Based Medications (Routine) - Authorized Specialty Diagnoses / Procedures Referred By Talha t Referred To Contact Diagnoses Endometrial cancer (HCC) Encounter for antineoplastic chemotherapy Procedures LA CARBOPLATIN INJECTION LA FOSAPREPITANT INJECTION LA PACLITAXEL INJECTION Cindi Sorto MD 200 [facility] [place] [address] Anc Hem/Onc [address] [address] Referral ID Status Reason Start Date Expiration Date V isits Requested Visits Authorized [id number] Authorized 01/05/2024 08/22/2099 999 [id number] Encounter Details Date Type Department Care Team (Latest Contact Info) Description 06/13/2024 8:30 AM EDT Hem/Onc Treatment Hematology/Oncolog y Treatment, [address] [address] Chair Bella 5 Hem Onc [address] [place] [address] Endometrial cancer (HCC)*; Encounter for antineoplastic chemotherapy Allergies Active Allergy Reactions Criticality Noted Date [...] Sign Reading Time Taken Comments Blood Pressure 142/92 06/13/2024 8:34 AM EDT Pulse 89 06/13/2024 8:34 AM EDT Temperature 36.6 °C (97.8 °F) 06/13/2024 8:34 AM ED T Respiratory Rate 16 06/13/2024 8:34 AM EDT Oxygen Saturation 94% 06/13/2024 8:34 AM EDT Inhaled Oxygen Concentration - - Weight 84.2 kg (185 lb 9.6 oz) 06/13/2024 8:34 A M EDT Height - - Body Mass Index 31.86 05/18/2024 8:14 AM EDT documented in this encounter Nursing Notes * Bernice Quevedo RN - 06/13/2024 1:51 PM EDT Patient tolerated treatment without issue. PIV removed intact. Goals: Patient will remain free from injury. Possible barriers to meeting goals: Ambulating with IV pole Stability of the patient: Moderately stable - low risk of patient condition declining or worsening Summary regarding today's goals: Met: Patient remained free from harm. Pt discharged in stable condition. * Bernice Quevedo RN - 06/13/2024 9:46 AM EDT Chair 12 Patient her for treatment. She verbalized no acute complaint. PIV started with brisk blood return. Chemotherapy/Immunotherapy agents: CARBOPLATIN and TAXOL Consent for chemotherapy drug treatment complete, dated, and signed? yes, date - 01/05/24 Treatment lab parameters met? Yes Has treatment weight changed > than 10%? No Treatment preauthorized? Yes VITALS Filed Vitals: 06/13/24 0834 BP: 142/92 Pulse: 89 Resp: 16 Temp: 36.6 °C (97.8 °F) TempSrc: Tympanic SpO2: 94% Weight: 84.2 kg (185 lb 9.6 oz) Urine protein: N/A Patient education completed for treatment? Yes Blood transfusion consent signed and complete? NA Return appointment scheduled? Yes Patient had provider visit today? No - If no provider visit must complete Pretreatment Assessment Functional Status: Functional status at today's visit: Fully active, able to carry on all pre-disease performance without restriction The drug name, dose, infusion volume, rate and route of administration, expiration date and time, appearance and physical integrity of the drug and rate set on the pump and sequencing of drug administration (as applicable) were verified by me and second sign-in RN. Patient was assessed for symptoms or adverse side effects during treatment. Patient Education: Patient instructed on use of heat and massage functions where applicable. Patient shown how to operate the heat function of the chair and to alert nursing staff if the chair feels too warm. Patient instructed on the risk of potential bustamante while using the heat function. PRE-TREATMENT ASSESSMENT: NEURO: denies symptoms CV/RESP: denies symptoms GI/: denies symptoms OTHER: denies any additional symptoms PAIN: 0 Safety and Risk for Injury Patient will remain free from injury. Ensure appropriate safety devices are available. Provide and maintain safe environment. documented in this encounter Plan of Treatment Upcoming Encounters Date Type Department Care Team (Late st Contact Info) Description 09/12/2024 7:40 AM EST Laboratory Laboratory [facility] 200 [facility] [place] [phone] [place], [address] [place] [address] 09/19/2024 8:00 AM EST Office Visit Hematology/Oncology [facility] [place] [address] [facility] [place] [phone] Cindi Sorto MD 200 [facility] [place] [address] 11/23/2024 8:20 AM EDT Office Visit Family Practice [facility] 200 [facility] [place] [address] Rosibel Bhagat DO 200 [facility] [place] [address] Scheduled Procedures Name Priority Associated Diagnoses Date/Ti [...] this encounter Medical Devices Implanted Type Area Paralegal Supervisor Device Identifier Shelf Expiration Date Model / Serial / Lot Lens Intraoc 15.0 - [id number] - [id number] Implanted:Qty: 1 on 02/25/2021 by MartínFelice johnston MD at OR [facility] Right: Eye [employer]CH [employer] LOMB 08/22/2025 [id number] / [id number] / [id number] Lens Intraoc 14.5 - [id number] - [id number] Implanted:Qty: 1 on 03/04/2021 by Felice Resendiz MD at OR [facility] Left: Eye BAUSCH & LOMB 09/22/2025 [id number] / [id number] / [id number] documented as of this encounter Visit Diagnoses Diagnosis Endometrial cancer (HCC)- Primary Malignant neoplasm of corpus uteri, except isthmus Encounter for antineoplastic chemotherapy documented in this encounter Administered Medications Inactive Administered Medications - up to 3 most recent administrations Medication Order MAR Action Action Date Dose Rate Site CARBOplatin (Paraplatin) 654 mg in D5W 250 mL infusion 654 mg (Target AUC = 6), IV Piggyback, at 510 mL/hr Administer over 30 Minutes, PROTECT FROM LIGHT (Max Creatinine Clearance at 125 ml/min for calculating AUC dose), ONCE, 1 dose, On Wed06/13/24 at 1130 Start Infusion 06/13/2024 1:09 PM EDT 654 mg 510 mL/hr diphenhydrAMINE (Benadryl) inj 25 mg 25 mg, IV Push, ONCE, On Wed06/13/24 at 0930, For 1 dose Given 06/13/2024 9:10 AM EDT 25 mg Famotidine (Pepcid) tab 20 mg 20 mg, Oral, ONCE, On Wed06/13/24 at 1000, For 1 dose Given 06/13/2024 9:07 AM EDT 20 mg Fosaprepitant Dimeglumine (Emend) 150 mg, ondansetron (Zofran) 16 mg, dexamethasone sodium phosphate 12 mg in NSS 250 mL Infusion 150 mg, IV Piggyback, ONCE, 1 dose, On Wed06/13/24 at 1000, Administer over 30 Minutes, Give 30 minutes prior to chemotherapy. Infuse over 30 minutes. Start Infusion 06/13/2024 9:02 AM EDT 150 mg 538.4 mL/hr NSS infusion Intravenous, at 50 mL/hr, PRN, Starting on Wed06/13/24 at 1000, Until Wed06/13/24 at 1807, Maintenance line Start Infusion 06/13/2024 8:57 AM EDT 50 mL/hr PACLitaxel (Taxol) 269 mg in NSS 500 mL infusion 269 mg (rounded from 268.8 mg = 140 mg/m2 1.92 m2 Treatment Plan BSA from Recorded weight), IV Piggyback, ONCE, 1 dose, On Wed06/13/24 at 1000, Administer over 180 Minutes, Administer through 0.22 micron low protein binding filter! Start Infusion 06/13/2024 10:02 AM EDT 269 mg 170 mL/hr documented in this encounter Advance Directives * Full Code (Latest Code Status on File) Date Activated Date Inactivated Comments 02/07/2021 2:01 PM 02/07/2021 10:57 PM This order reflects the patients wishes and were consensually agreed upon. Question Answer Comments Discussion of Advance Directives occurred with: Not Discussed Care Teams Reimbursement Auditor Relationship Specialty Start Date End Date Rosibel Bhagat DO [address] [place] [address] PCP - General Family Medicine 10/21/18 documented as of this encounter
--- OUTSIDE RECORDS SUMMARY | 2024-12-16 20:15 | External Medical Summary | Summary of Care ---
Author Name Unknown Organization [facility] Address [address] [place] [address] Phone [phone] Care Team Providers Care Narcotics Investigator Name Role Phone Rosibel Bhagat DO Primary Care Provider Reason for Visit * Reason Onset Date Comments Health Maintenance 06/28/2024 Encounter Details Date Type Department Care Team (Late st Contact Info) Description 06/28/2024 Telephone Family Practice [facility] 200 [facility] [place] [address] Rosibel Bhagat DO 200 [facility] [address] Health Maintenance Allergies Active Allergy Reactions Criticality Noted Date Comments Atorvastatin Muscle pain Low 07/30/2017 fogginess documented as of this encounter (statuses as of 06/28/2024) Medications Medication Sig Dispensed Refills Start Date [...] as of this encounter (statuses as of 06/28/2024) Active Problems Problem Noted Date Diagnosed Date [...] as of this encounter (statuses as of 06/28/2024) Resolved Problems Problem Noted Date Diagnosed Date Resolved Date Prediabetes 04/14/2019 02/03/2024 NONE 04/10/2002 08/19/2018 NO KNOWN PROBLEMS 08/19/2018 documented as of this encounter (statuses as of 06/28/2024) Immunizations Name Administration Dates Next Due COVID-19 [...] per pcp Care Gap Outreach Action Taken: Socialitehart message sent documented in this encounter Plan of Treatment Upcoming Encounters Date Type Department Care Team (Late st Contact Info) Description 06/29/2024 10:30 AM EST Imaging Radiology [address], [place] [address] [facility] [place] [address] 09/12/2024 7:40 AM EST Laboratory Laboratory [facility] [address] [place] [phone] [place] [facility] [address] [facility] [place] [address] 09/19/2024 8:00 AM EST Office Visit Hematology/Oncology [facility] [address] [place] [address] Cindi Sorto MD [address] [place] [address] 11/23/2024 8:20 AM EDT Office Visit Family Practice [facility] [address] [place] [address] Rosibel Bhagat DO [address] [place] [address] Scheduled Procedures Name Priority Associated Diagnoses Date/Ti [...] this encounter Medical Devices Implanted Type Area High Tension Tester Device Identifier Shelf Expiration Date Model / Serial / Lot Lens Intraoc 15.0 - [id number] - [id number] Implanted:Qty: 1 on 02/25/2021 by Felice Resendiz MD at OR [facility] Right: Eye BAUSCH [employer] LOMB 08/22/2025 [id number] / [id number] / [id number] Lens Intraoc 14.5 - [id number] - [id number] Implanted:Qty: 1 on 03/04/2021 by Felice Resendiz MD at OR [facility] Left: Eye BAUSCH & LOMB 09/22/2025 [id number] / [id number] / [id number] documented as of this encounter Advance Directives * Full Code (Latest Code Status on File) Date Activated Date Inactivated Comments 02/07/2021 2:01 PM 02/07/2021 10:57 PM This order reflects the patients wishes and were consensually agreed upon. Question Answer Comments Discussion of Advance Directives occurred with: Not Discussed Care Teams Narcotics Investigator Relationship Specialty Start Date End Date Rosibel Bhagat DO [address] [place] [facility] [place] [address] PCP - General Family Medicine 10/21/18 documented as of this encounter
--- OUTSIDE RECORDS SUMMARY | 2024-12-16 20:15 | External Medical Summary | Summary of Care ---
Author Name Unknown Organization [facility] Address [address] [place] [address] Phone [phone] Care Team Providers Care Tombstone Carver Name Role Phone Rosibel Bhagat Primary Care Provider Reason for Visit * Reason Comments Chemotherapy C5 D1 Taxol and Carb o * Episode Based Medications (Routine) - Authorized Specialty Diagnoses / Procedures Referred By Talha t Referred To Contact Diagnoses Endometrial cancer (HCC) Encounter for antineoplastic chemotherapy Procedures LA CARBOPLATIN INJECTION LA FOSAPREPITANT INJECTION LA PACLITAXEL INJECTION Cindi Sorto MD 200 [facility] [place] [address] Anc Hem/Onc [address] [address] Referral ID Status Reason Start Date Expiration Date V isits Requested Visits Authorized [id number] Authorized 01/05/2024 08/22/2099 [id number] Encounter Details Date Type Department Care Team (Latest Contact Info) Description 06/13/2024 8:30 AM EDT Hem/Onc Treatment Hematology/Oncolog y Treatment, [address] [address] Chair Bella 5 Hem Onc [address] [place] [address] Endometrial cancer (HCC)*; Encounter for antineoplastic chemotherapy [...] c.7181C>T · This result is consistent with LMIA-related cancer risk Testing ordered by: Rosibel Bhagat [...] Description 09/12/2024 7:40 AM EST Laboratory Laboratory [facility] 200 [facility] [place] [phone] [place], [address] [place] [address] 09/19/2024 8:00 AM EST Office Visit Hematology/Oncology [facility] [place] 200 [facility] [place] [phone] Cindi Sorto MD 200 [facility] [place] [address] 11/23/2024 8:20 AM EDT Office Visit Family Practice [facility] 200 [facility] [place] [address] Rosibel Bhagat DO 200 [facility] [place] [address] Scheduled Procedures Name Priority Associated Diagnoses Date/Ti [...] this encounter Medical Devices Implanted Type Area Parimutuel Ticket Seller Device Identifier Shelf Expiration Date Model / Serial / Lot Lens Intraoc 15.0 - [id number] - [id number] Implanted:Qty: 1 on 02/25/2021 by MartínFelice johnston MD at OR [facility] Right: Eye BAUSCH & LOMB 08/22/2025 [id number] / [id number] / [id number] Lens Intraoc 14.5 - [id number] - [id number] Implanted:Qty: 1 on 03/04/2021 by Felice Resendiz MD at OR [facility] Left: Eye BAUSCH & LOMB 09/22/2025 [id number] / [id number] / [id number] documented as of this encounter Visit Diagnoses [...] Directives occurred with: Not Discussed Care Teams Tombstone Carver Relationship Specialty Start Date End Date Rosibel Bhagat DO [address] [place] [address] PCP - General Family Medicine 10/21/18 documented as of this encounter
--- OUTSIDE RECORDS SUMMARY | 2024-12-16 20:15 | External Medical Summary | Summary of Care ---
Author Name Unknown Organization [facility] Address [address] [place] [address] Phone [phone] Care Team Providers Care Double End Trimmer Name Role Phone Rosibel Bhagat Primary Care Provider Reason for Visit * Reason Comments Chemotherapy C5 D1 Taxol and Carb o * Episode Based Medications (Routine) - Authorized Specialty Diagnoses / Procedures Referred By Talha t Referred To Contact Diagnoses Endometrial cancer (HCC) Encounter for antineoplastic chemotherapy Procedures NE CARBOPLATIN INJECTION NE FOSAPREPITANT INJECTION NE PACLITAXEL INJECTION Cindi Sorto MD 200 [facility] [place] [address] Anc Hem/Onc [address] [address] Referral ID Status Reason Start Date Expiration Date V isits Requested Visits Authorized [id number] Authorized 01/05/2024 08/22/[phone] Encounter Details Date Type Department Care Team (Latest Contact Info) Description 06/13/2024 8:30 AM EDT Hem/Onc Treatment Hematology/Oncolog y Treatment, [address] [address] Chair Bella 5 Hem Onc [address] [place] [address] Endometrial cancer (HCC)*; Encounter for antineoplastic chemotherapy [...] Description 09/12/2024 7:40 AM EST Laboratory Laboratory [facility] 200 [facility] [place] [phone] [place], [address] [place] [address] 09/19/2024 8:00 AM EST Office Visit Hematology/Oncology [facility] [place] 200 [facility] [place] [phone] Cindi Sorto MD 200 [facility] [place] [address] 11/23/2024 8:20 AM EDT Office Visit Family Practice [facility] 200 [facility] [place] [address] Rosibel Bhagat DO 200 [facility] [place] [address] Scheduled Procedures Name Priority Associated Diagnoses Date/Ti [...] this encounter Medical Devices Implanted Type Area Test And Turn Up Technician Device Identifier Shelf Expiration Date Model / Serial / Lot Lens Intraoc 15.0 - [id number] - [id number] Implanted:Qty: 1 on 02/25/2021 by MartínFelice johnston MD at OR [facility] Right: Eye BAUSCH & LOMB 08/22/2025 [id number] / [id number] / [id number] Lens Intraoc 14.5 - [id number] - [id number] Implanted:Qty: 1 on 03/04/2021 by Felice Resendiz MD at OR [facility] Left: Eye BAUSCH & LOMB 09/22/2025 [id number] / [id number] / [id number] documented as of this encounter Visit Diagnoses [...] Directives occurred with: Not Discussed Care Teams Double End Trimmer Relationship Specialty Start Date End Date Rosibel Bhagat DO [address] [place] [address] PCP - General Family Medicine 10/21/18 documented as of this encounter
--- OUTSIDE RECORDS SUMMARY | 2024-12-16 20:15 | External Medical Summary | Summary of Care ---
Author Name Unknown Organization [facility] Address [address] [place] [address] Phone [phone] Care Team Providers Care Clinical Microbiologist Name Role Phone Rosibel Bhagat Primary Care Provider Reason for Visit * Reason Comments Chemotherapy C5 D1 Taxol and Carb o * Episode Based Medications (Routine) - Authorized Specialty Diagnoses / Procedures Referred By Talha t Referred To Contact Diagnoses Endometrial cancer (HCC) Encounter for antineoplastic chemotherapy Procedures CO CARBOPLATIN INJECTION CO FOSAPREPITANT INJECTION CO PACLITAXEL INJECTION Cindi Sorto MD 200 [place] [address] Anc Hem/Onc [address] [address] Referral ID Status Reason Start Date Expiration Date V isits Requested Visits Authorized [id number] Authorized 01/05/2024 08/22/2099 999 [id number] Encounter Details Date Type Department Care Team (Latest Contact Info) Description 06/13/2024 8:30 AM EDT Hem/Onc Treatment Hematology/Oncolog y Treatment, [address] [address] Chair Bella 5 Hem Onc [address] [place] [address] Endometrial cancer (HCC)*; Encounter for antineoplastic chemotherapy [...] Description 09/12/2024 7:40 AM EST Laboratory Laboratory [facility] 200 [facility] [place] [phone] [place], [address] [place] [address] 09/19/2024 8:00 AM EST Office Visit Hematology/Oncology [facility] [place] 200 [facility] [place] [phone] Cindi Sorto MD 200 [facility] [place] [address] 11/23/2024 8:20 AM EDT Office Visit Family Practice [facility] 200 [facility] [place] [address] Rosibel Bhagat DO 200 [facility] [place] [address] Scheduled Procedures Name Priority Associated Diagnoses Date/Ti [...] this encounter Medical Devices Implanted Type Area Box Stamper Device Identifier Shelf Expiration Date Model / Serial / Lot Lens Intraoc 15.0 - [id number] - [id number] Implanted:Qty: 1 on 02/25/2021 by MartínFelice johnston MD at OR [facility] Right: Eye BAUSCH & LOMB 08/22/2025 [id number] / [id number] / [id number] Lens Intraoc 14.5 - [id number] - [id number] Implanted:Qty: 1 on 03/04/2021 by Felice Resendiz MD at OR [facility] Left: Eye BAUSCH & LOMB 09/22/2025 [id number] / [id number] / [id number] documented as of this encounter Visit Diagnoses [...] Directives occurred with: Not Discussed Care Teams Clinical Microbiologist Relationship Specialty Start Date End Date Rosibel Bhagat DO [address] [place] [address] PCP - General Family Medicine 10/21/18 documented as of this encounter
--- OUTSIDE RECORDS SUMMARY | 2024-12-16 20:15 | External Medical Summary | Summary of Care ---
Author Name Unknown Organization [facility] [address] [facility] [facility] [address] Phone [phone] Care Team Providers Care Insurance Plan Specialist Name Role Phone Rosibel Bhagat Primary Care Provider Reason for Visit * Reason Comments Outpatient Testing Encounter Details Date Type Department Care Team (Late st Contact Info) Description 09/18/2024 7:50 AM EST Laboratory Laboratory [place] Kia Blanco [address] [place] [phone] [facility] Lab [place] [address] [place] [address] Endometrial cancer (HCC); Encounter for antineoplastic chemotherapy Allergies Active Allergy Reactions Criticality Noted Date Comments Atorvastatin Muscle pain Low 07/30/2017 fogginess documented as of this encounter (statuses as of 09/18/2024) Medications MULTIVITAMIN/IR ON PO TABSIndications :Dyslipidemia, goal [...] as of this encounter (statuses as of 09/18/2024) Active Problems Problem Noted Date Diagnosed Date [...] as of this encounter (statuses as of 09/18/2024) Resolved Problems Problem Noted Date Diagnosed Date Resolved Date Prediabetes 04/14/2019 02/03/2024 NONE 04/10/2002 08/19/2018 NO KNOWN PROBLEMS 08/19/2018 documented as of this encounter (statuses as of 09/18/2024) Immunizations Name Administration Dates Next Due COVID-19 [...] ages 0-17 years) Not on file 05/18/2024 Comments No Sex and Gender Information Value Date Recorded Sex Assigned at Female 02/03/2023 11:38 AM EDT Legal Sex Female 5:26 AM EST Gender Identity Female 02/03/2023 11:38 AM EDT Sexual Orientation Straight 02/03/2023 11 :38 AM EDT 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 Not on file Not on file documented as of this encounter Plan of Treatment Upcoming Encounters Date Type Department Care Team (Late st Contact Info) Description 09/19/2024 8:00 AM EST Office Visit Hematology/Oncology [place] [address] [phone] Cindi Sorto MD [address] [place] [address] 11/23/2024 8:20 AM EDT Office Visit Family Practice [place] [address] [address] Rosibel Bhagat, [address] [address] Pending Results Name Type Priority Associated Diagnoses Date /Time COMPREHENSIVE METABOLIC PANEL Lab STAT Endometrial cancer (HCC) Encounter for antineoplastic chemotherapy 09/18/2024 8:04 AM EST CA 125 Lab Routine Endometrial cancer (HCC) 09/18/2024 8:04 AM EST Scheduled Procedures Name Priority Associated Diagnoses Date/Ti me COLONOSCOPY FLEXIBLE PROXIMA L DIAGNOSTIC Recall Special screening for malignant neoplasms, colon Health Maintenance Due Date Last Done Comments Cologuard 2005 Fecal Occult Blood Test 2005 Sigmoidoscopy 2005 Pneumococcal Vaccine: 50+ Years (1 of 1 - PCV) 2010 Depression Screening 07/30/2018 07/30/2017 COVID-19 Vaccine ( season) 2024 11/15/2020, 10/18/2020 Influenza Vaccine (FLU shot) (#1) 2024 06/14/2023, 08/13/2022, 05/22/2021, Additional history exists Colonoscopy 06/08/2024 06/08/2014, 06/08/2014 Colorectal Cancer Screening 06/08/2024 GFR 06/12/2025 06/12/2024, 04/25, 04/14/2024, Additional history exists Mammogram 06/29/2025 06/29/2024, 1108/2022, 03/20/2022, Additional history exists Albumin/Creatinine Ratio 10/28/2026 10/29/2023 [...] this encounter Medical Devices Implanted Type Area Stock Hanger Device Identifier Shelf Expiration Date Model / Serial / Lot Lens Intraoc 15.0 - [id number] - [id number] Implanted:Qty: 1 on 02/25/2021 by Felice Resendiz MD at OR [facility] Right: Eye BAUSCH [employer] LOMB 08/22/2025 [id number] / [id number] / [id number] Lens Intraoc 14.5 - [id number] - [id number] Implanted:Qty: 1 on 03/04/2021 by Felice Resendiz MD at OR [facility] Left: Eye BAUSCH & LOMB 09/22/2025 [id number] / [id number] / [id number] documented as of this encounter Procedures Procedure Name Priority Date/Time Associated Diagnosis Comments DIFFERENTIAL, AUTOMATED STAT 09/18/2024 8:04 AM EST Endometrial cancer (HCC) Encounter for antineoplastic chemotherapy CBC STAT 09/18/2024 8:04 AM EST Endometrial cancer (HCC) Encounter for antineoplastic chemotherapy CBC STAT 09/18/2024 8:04 AM EST Endometrial cancer (HCC) Encounter for antineoplastic chemotherapy documented in this encounter Results * DIFFERENTIAL, AUTOMATED (09/18/2024 8:04 AM EST) WBC 6.31 4.00 - 10.80 K/uL 09/18/2024 8:13 AM EST [facility] [place] [facility] Neutrophils % 49.0 40.0 - 75.0 % 09/18/2024 8:13 AM EST [facility] [place] [facility] Lymphocytes % 40.4 18.0 - 42.0 % 09/18/2024 8:13 AM EST [facility] [place] [facility] Monocytes % 7.3 1.0 - 11.0 % 09/18/2024 8:13 AM EST [facility] [place] [facility]- Eosinophils % 3.0 0.0 - 6.0 % 09/18/2024 8:13 AM [facility] 56- Basophils % 0.3 0.0 - 2.0 % 09/18/2024 8:13 AM [facility] 56- Absolute Neutrophils 3.09 1.80 - 7.70 K/uL 09/18/2024 8:13 AM [facility] 56- Absolute Lymphocytes 2.55 1.00 - 4.80 K/ul 09/18/2024 8:13 AM [facility] 56- Absolute Monocytes 0.46 0.00 - 1.10 K/uL 09/18/2024 8:13 AM [facility] 56- Absolute Eosinophils 0.19 0.00 - 0.70 K/uL 09/18/2024 8:13 AM [facility] 56- Absolute Basophils 0.02 0.00 - 0.20 K/uL 09/18/2024 8:13 AM [facility] 56- Blood Venous blood specimen / Unknown Venipuncture / Unknown 09/18/2024 8:04 AM EST 09/18/2024 8:04 AM EST Cindi Sorto MD LAB BLOOD ORDERABLES Fin al Result [facility] 56- [address] [place] [address] * CBC (09/18/2024 8:04 AM EST) WBC 6.31 4.00 - 10.80 K/uL 09/18/2024 8:13 AM [facility] 56- RBC 4.47 3.85 - 5.15 M/uL 09/18/2024 8:13 AM [facility] 56- HGB 13.9 12.0 - 15.3 g/dL 09/18/2024 8:13 AM [facility] 56- HCT 41.7 36.0 - 45.2 % 09/18/2024 8:13 AM [facility] 56- MCV 93.3 81.5 - 97.5 fL 09/18/2024 8:13 AM EST [facility] 56- MCH 31.1 27.0 - 34.0 pg 09/18/2024 8:13 AM [facility] 56- MCHC 33.3 32.0 - 36.0 g/dL 09/18/2024 8:13 AM EST [facility] 56- RDW 12.2 11.5 - 15.5 % 09/18/2024 8:13 AM [facility] 56- PLT 227 140 - 400 K/uL 09/18/2024 8:13 AM [facility] 56- MPV 8.5 6.6 - 11.1 fL 09/18/2024 8:13 AM [facility] 56- Blood Venous blood specimen / Unknown Venipuncture / Unknown 09/18/2024 8:04 AM EST 09/18/2024 8:04 AM EST Cindi Sorto MD LAB BLOOD ORDERABLES Fin al Result [facility] [address] [facility] [address] documented in this encounter Visit Diagnoses Diagnosis Endometrial cancer (HCC) Malignant neoplasm of corpus uteri, except isthmus Encounter for antineoplastic chemotherapy documented in this encounter Advance Directives * Full Code (Latest Code Status on File) Date Activated Date Inactivated Comments 02/07/2021 2:01 PM 02/07/2021 10:57 PM This order reflects the patients wishes and were consensually agreed upon. Question Answer Comments Discussion of Advance Directives occurred with: Not Discussed Care Teams Insurance Plan Specialist Relationship Specialty Start Date End Date [facility]agat [facility] [address] [facility] [address] PCP - General Family Medicine 10/21/18 documented as of this encounter
--- OUTSIDE RECORDS SUMMARY | 2024-12-16 20:15 | External Medical Summary | Summary of Care ---
Author Name Unknown Organization [facility] Address [address] [place] [facility] [place] [address] Phone [phone] Care Team Providers Care Design Verification Engineer Name Role Phone Rosibel Bhagat DO Primary Care Provider Encounter Details Date Type Department Care Team (Late st Contact Info) Description 07/31/2024 Orders Only Family Practice [facility] [place] 200 [facility] [place] [address] Rosibel Bhagat DO 200 [facility] [place] [address] Allergies Active Allergy Reactions Criticality Noted Date Comments Atorvastatin Muscle pain Low 07/30/2017 fogginess documented as of this encounter (statuses as of 07/31/2024) Medications MULTIVITAMIN/IR ON PO TABSIndications :Dyslipidemia, goal [...] as of this encounter (statuses as of 07/31/2024) Active Problems Problem Noted Date Diagnosed Date [...] as of this encounter (statuses as of 07/31/2024) Resolved Problems Problem Noted Date Diagnosed Date Resolved Date Prediabetes 04/14/2019 02/03/2024 NONE 04/10/2002 08/19/2018 NO KNOWN PROBLEMS 08/19/2018 documented as of this encounter (statuses as of 07/31/2024) Immunizations Name Administration Dates Next Due COVID-19 [...] 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 on file documented as of this encounter Plan of Treatment Upcoming Encounters Date Type Department Care Team (Late st Contact Info) Description 09/12/2024 7:40 AM EST Laboratory Laboratory State Kia Baird [address] [phone] [address] [place] [address] [address] 09/19/2024 8:00 AM EST Office Visit Hematology/[place] [phone] Cindi Sorto MD [address] [address] 11/23/2024 8:20 AM EDT Office Visit Family Practice [facility] [place] 200 [facility] [place] [address] Rosibel Bhagat, 200 [facility] [place] [address] Pending Results Name Type Priority Associated Diagnoses Date /Time CT ABD/PELVIS W WO IV CONTRAST AND W ORAL CONT Medical Imaging Routine 024 CT CHEST W CONTRAST Medical Imaging Routine 07/28/2024 Scheduled Procedures Name Priority Associated Diagnoses Date/Ti [...] this encounter Medical Devices Implanted Type Area Rivet Flunky Device Identifier Shelf Expiration Date Model / Serial / Lot Lens Intraoc 15.0 - [id number] - [id number] Implanted:Qty: 1 on 02/25/2021 by Felice Resendiz MD at OR [facility] Right: Eye BAUSCH [employer] LOMB 08/22/2025 [id number] / [id number] / [id number] Lens Intraoc 14.5 - [id number] - [id number] Implanted:Qty: 1 on 03/04/2021 by Felice Resendiz MD at OR [facility] Left: Eye BAUSCH & LOMB 09/22/2025 [id number] / [id number] / [id number] documented as of this encounter Advance Directives * Full Code (Latest Code Status on File) Date Activated Date Inactivated Comments 02/07/2021 2:01 PM 02/07/2021 10:57 PM This order reflects the patients wishes and were consensually agreed upon. Question Answer Comments Discussion of Advance Directives occurred with: Not Discussed Care Teams Design Verification Engineer Relationship Specialty Start Date End Date Rosibel Bhagat DO [address] [place] [address] PCP - General Family Medicine 10/21/18 documented as of this encounter
--- OUTSIDE RECORDS SUMMARY | 2024-12-16 20:15 | External Medical Summary | Summary of Care ---
Author Name Unknown Organization [facility] Address [address] [place] [address] Phone [phone] Care Team Providers Care Administrative Court Justice Name Role Phone Rosibel Bhagat Primary Care Provider Reason for Visit * Reason Comments Chemotherapy C5 D1 Taxol and Carb o * Episode Based Medications (Routine) - Authorized Specialty Diagnoses / Procedures Referred By Talha t Referred To Contact Diagnoses Endometrial cancer (HCC) Encounter for antineoplastic chemotherapy Procedures OK CARBOPLATIN INJECTION OK FOSAPREPITANT INJECTION OK PACLITAXEL INJECTION Cindi Sorto MD 200 [facility] [place] [address] Anc Hem/Onc [address] [phone] Referral ID Status Reason Start Date Expiration Date V isits Requested Visits Authorized [id number] Authorized 01/05/2024 08/22/[phone] Encounter Details Date Type Department Care Team (Latest Contact Info) Description 06/13/2024 8:30 AM EDT Hem/Onc Treatment Hematology/Oncolog y Treatment, [address] [address] [place] 5 Hem Onc [address] [place] [address] Endometrial cancer (HCC)*; Encounter for antineoplastic chemotherapy [...] Description 09/12/2024 7:40 AM EST Laboratory Laboratory [facility] 200 [facility] [place] [phone] [place], [address] [place] [address] 09/19/2024 8:00 AM EST Office Visit Hematology/Oncology [facility] [place] 200 [facility] [place] [phone] Cindi Sorto MD 200 [facility] [place] [address] 11/23/2024 8:20 AM EDT Office Visit Family Practice [facility] 200 [facility] [place] [address] Rosibel Bhagat DO 200 [facility] [place] [address] Scheduled Procedures Name Priority Associated Diagnoses Date/Ti [...] this encounter Medical Devices Implanted Type Area [employer] Reading Teacher Device Identifier Shelf Expiration Date Model / Serial / Lot Lens Intraoc 15.0 - [id number] - [id number] Implanted:Qty: 1 on 02/25/2021 by MartínFelice johnston MD at OR [facility] Right: Eye BAUSCH [employer] LOMB 08/22/2025 [id number] / [id number] / [id number] Lens Intraoc 14.5 - [id number] - [id number] Implanted:Qty: 1 on 03/04/2021 by Felice Resendiz MD at OR [facility] Left: Eye BAUSCH & LOMB 09/22/2025 [id number] / [id number] / [id number] documented as of this encounter Visit Diagnoses [...] Directives occurred with: Not Discussed Care Teams Administrative Court Justice Relationship Specialty Start Date End Date Rosibel Bhagat DO [address] [place] [address] PCP - General Family Medicine 10/21/18 documented as of this encounter
--- OUTSIDE RECORDS SUMMARY | 2024-12-16 20:15 | External Medical Summary | Summary of Care ---
Author Name Unknown Organization [facility] Address [address] [place] [address] Phone [phone] Care Team Providers Care Medicare Sales Executive Name Role Phone Rosibel Bhagat Primary Care Provider Reason for Visit * Reason Comments Chemotherapy C5 D1 Taxol and Carb o * Episode Based Medications (Routine) - Authorized Specialty Diagnoses / Procedures Referred By Talha t Referred To Contact Diagnoses Endometrial cancer (HCC) Encounter for antineoplastic chemotherapy Procedures SC CARBOPLATIN INJECTION SC FOSAPREPITANT INJECTION SC PACLITAXEL INJECTION Cindi Sorto MD 200 [facility] [place] [address] Anc Hem/Onc [address] [phone] Referral ID Status Reason Start Date Expiration Date V isits Requested Visits Authorized [id number] Authorized 01/05/2024 08/22/[phone] Encounter Details Date Type Department Care Team (Latest Contact Info) Description 06/13/2024 8:30 AM EDT Hem/Onc Treatment Hematology/Oncolog y Treatment, [address] [address] [place] 5 Hem Onc [address] [place] [address] Endometrial cancer (HCC)*; Encounter for antineoplastic chemotherapy [...] harm. Pt discharged in stable condition. * eBrnice Quevedo RN - 06/13/2024 9:46 AM EDT [...] Description 09/12/2024 7:40 AM EST Laboratory Laboratory [facility] 200 [facility] [place] [phone] [place], [address] [place] [address] 09/19/2024 8:00 AM EST Office Visit Hematology/Oncology [facility] [place] 200 [facility] [place] [phone] Cindi Sorto MD 200 [facility] [place] [address] 11/23/2024 8:20 AM EDT Office Visit Family Practice [facility] 200 [facility] [place] [address] Rosibel Bhagat DO 200 [facility] [place] [address] Scheduled Procedures Name Priority Associated Diagnoses Date/Ti [...] this encounter Medical Devices Implanted Type Area Telesales Supervisor Device Identifier Shelf Expiration Date Model / Serial / Lot Lens Intraoc 15.0 - [id number] - [id number] Implanted:Qty: 1 on 02/25/2021 by MartínFelice johnston MD at OR [facility] Right: Eye BAUSCH [employer] LOMB 08/22/2025 [id number] / [id number] / [id number] Lens Intraoc 14.5 - [id number] - [id number] Implanted:Qty: 1 on 03/04/2021 by Felice Resendiz MD at OR [facility] Left: Eye BAUSCH & LOMB 09/22/2025 [id number] / [id number] / [id number] documented as of this encounter Visit Diagnoses [...] Directives occurred with: Not Discussed Care Teams Medicare Sales Executive Relationship Specialty Start Date End Date Rosibel Bhagat DO [address] [place] [address] PCP - General Family Medicine 10/21/18 documented as of this encounter
--- OUTSIDE RECORDS SUMMARY | 2024-12-16 20:15 | External Medical Summary ---
Author Name Unknown Address Unknown Organization K09:[facility] [address] [address] Laboratory Report Ordering Provider Test Date Status EDI SAGASTUME 09/18/2024 08:04:50 Final Observation Date Value Abnormality Reference (Units ) Status BUN 09/18/2024 08:04:50 15 6-20 (mg/dL) Final Creatinine 09/18/2024 08:04:50 0.7 0.5-1.0 (mg/dL) Final Glomerular filtration rate/1.73 sq M.predicted [Volume Rate/Area] in Serum, Plasma or Blood by Creatinine-based formula (CKD-EPI) 09/18/2024 08:04:50 90 >=60 (mL/min) Final eGFR is calculated based on the CKD-EPI 2020 equation. Sodium 09/18/2024 08:04:50 141 135-146 (m mol/L) Final Potassium 09/18/2024 08:04:50 4.1 3.5-5.1 (m mol/L) Final Cl 09/18/2024 08:04:50 103 98-107 (mm ol/L) Final CO2 09/18/2024 08:04:50 28 22-32 (mmo l/L) Final Anion gap 09/18/2024 08:04:50 10 7-15 (mmol /L) Final Glucose 09/18/2024 08:04:50 110 70-120 (mg /dL) Final Albumin 09/18/2024 08:04:50 4.4 3.8-5.0 (g /dL) Final AST (Aspartate aminotransferase) 09/18/2024 08:04:50 16 10-35 (U/L) Final Alk Phos 09/18/2024 08:04:50 71 35-130 (U/ L) Final Bilirubin, Total 09/18/2024 08:04:50 0.3 <=1 .2 (mg/dL) Final Calcium 09/18/2024 08:04:50 9.9 8.4-10.2 ( mg/dL) Final Protein 09/18/2024 08:04:50 7.2 6.0-8.3 (g /dL) Final ALT (Alanine aminotransferase) 09/18/2024 08:04:50 20 10-35 (U/L) Final Performing Location [facility]- 02 [address] [place] [address]
--- OUTSIDE RECORDS SUMMARY | 2024-12-16 20:15 | External Medical Summary | Summary of Care ---
Author Name Unknown Organization [facility] Address [address] [place] [address] Phone [phone] Care Team Providers Care Charge Rn Name Role Phone Rosibel Bhagat Primary Care Provider Reason for Visit * Reason Comments Chemotherapy C5 D1 Taxol and Carb o * Episode Based Medications (Routine) - Authorized Specialty Diagnoses / Procedures Referred By Talha t Referred To Contact Diagnoses Endometrial cancer (HCC) Encounter for antineoplastic chemotherapy Procedures NE CARBOPLATIN INJECTION NE FOSAPREPITANT INJECTION NE PACLITAXEL INJECTION Cindi Sorto MD [address] [facility] [place] [place] [address] Anc Hem/Onc [address] [address] Referral ID Status Reason Start Date Expiration Date V isits Requested Visits Authorized [id number] Authorized 01/05/2024 08/22/[phone] Encounter Details Date Type Department Care Team (Latest Contact Info) Description 06/13/2024 8:30 AM EDT Hem/Onc Treatment Hematology/Oncolog y Treatment, [address] [address] Chair [place] 5 Hem Onc [address] [place] [address] Endometrial cancer (HCC)*; Encounter for antineoplastic chemotherapy [...] Description 09/12/2024 7:40 AM EST Laboratory Laboratory [facility] [address] [facility] [place] [phone] [place], [address] [place] [address] 09/19/2024 8:00 AM EST Office Visit Hematology/Oncology [facility] [place] [address] [facility] [place] [phone] Cindi Sorto MD [address] [facility] [place] [address] 11/23/2024 8:20 AM EDT Office Visit Family Practice [facility] [address] [facility] [place] [address] Rosibel Bhagat DO [address] [facility] [place] [address] Scheduled Procedures Name Priority Associated Diagnoses Date/Ti [...] this encounter Medical Devices Implanted Type Area Precision Agriculture Specialist Device Identifier Shelf Expiration Date Model / Serial / Lot Lens Intraoc 15.0 - [id number] - [id number] Implanted:Qty: 1 on 02/25/2021 by MartínFelice johnston MD at OR [facility] Right: Eye BAUSCH & LOMB 08/22/2025 [id number] / [id number] / [id number] Lens Intraoc 14.5 - [id number] - [id number] Implanted:Qty: 1 on 03/04/2021 by Felice Resendiz MD at OR [facility] Left: Eye BAUSCH & LOMB 09/22/2025 [id number] / [id number] / [id number] documented as of this encounter Visit Diagnoses [...] Directives occurred with: Not Discussed Care Teams Charge Rn Relationship Specialty Start Date End Date Rosibel Bhagat DO [address] [place] [address] PCP - General Family Medicine 10/21/18 documented as of this encounter
--- OUTSIDE RECORDS SUMMARY | 2024-12-16 20:15 | External Medical Summary ---
Author Name Unknown Address Unknown Organization K01:[facility]AT[facility] - [address] [place] [address] Laboratory Report Ordering Provider Test Date Status EDI SAGASTUME 09/18/2024 08:04:50 Final Observation Date Value Abnormality Reference (Units ) Status Cancer Ag 125 09/18/2024 08:04:50 12.5 <=38.1 (U/mL) Final Performing Location LAB[facility] C - [address] [place] [address]
[2024-12-16] MEDS: OPTIRAY 320 125ml IV ONE (20:38)
--- NOTE | 2024-12-16 20:40 | Emergency Department Note ---
Impression & Plan Word finding difficulty, Hypertension, Acute hypokalemia ED Provider Note NAME: ADORE VIVAR AGE: 64 SEX: F : 1960 ARRIVES VIA: Walk-In INFORMANT: Patient, ED PROVIDER(S): Davey Rothman MD CHIEF COMPLAINT: Word finding difficulty MEDICAL DECISION MAKING: Patient presents with the above although this is since resolved. This began around 745 and dissipated by about 8:00. IV was established and blood work was obtained along with a [id number] and the patient did get a CT for CT angiography of the head and neck and Noncon CT of the head. EKG also completed. The patient CT head and CT angiography of the head and neck are negative. I did speak with Dr. Mills with radiology about these results. Blood work shows a normal white count H&H and platelet count kidney function was unremarkable. The patient was ordered baby aspirin. Patient has a prior history of his statin intolerance. Potassium 3.3. The patient was ordered 40 mEq of potassium chloride for replacement. LFTs unremarkable. I did inform the patient of the findings. MRI of the brain was ordered. I did speak the on-call hospital service Dr. De La Rosa and the patient was admitted to the medicine service. Discussion w/ other healthcare providers: Dr. Mills radiology Dr. De La Rosa inpatient medicine service Prior /Outside records reviewed: None Differential diagnosis: Infection, dehydration, metabolic abnormality, hypo/hyperglycemia, electrolyte imbalance, anemia, UTI, pneumonia, thyroid dysfunction among others were considered. Diagnostics, as interpreted by me: ECG: Normal sinus rhythm, rate 72, normal intervals, normal axis, T wave version V2 no ST elevations. Cardiac monitoring: An order was placed for continuous cardiac monitoring. The monitor shows a rate of 75 with sinus rhythm. Patient was placed on pulse oximetry Medical decision rules: None Imaging studies: I informally interpreted the patient's CT head does not show obvious ICH, calcification noted, with formal report to follow. HPI: Patient presents due to concerns for word finding difficulty which began around 730 lasting proxy 15 minutes in duration. The patient states she was not able to remember family ember's names and had difficulty finding the words that she was trying to utilize. No prior history of stroke or mini stroke. Patient states that she had bitemporal headache pain which is since resolved and has some ear pressure. Patient denies any numbness tingling or focal weakness. No falls or trauma. The patient does not take any blood thinning medications. She does take hydrochlorothiazide and metoprolol which she did take this morning. Patient denies any alcohol tobacco or drug use. PAST MEDICAL HISTORY: High blood pressure PAST SURGICAL HISTORY: No pertinent past surgical history SOCIAL HISTORY: Speaks [place]. Denies tobacco or drug use. HOME MEDICATIONS: See Below ALLERGIES: See Below VITALS: See Below PHYSICAL EXAMINATION: GENERAL: NAD, non-toxic. EYE EXAM: Normal conjunctiva. PERRL, no anisocoria and EOM's grossly intact w/o pain. OROPHARYNX: Moist mucus membranes, grossly normal dentition. NECK: Trachea midline, no stridor. Supple, no nuchal rigidity, no adenopathy, non-tender. No signs of meningismus. FROM of the neck with good chin to chest and neck extension. LUNGS: Clear to auscultation. Normal chest wall mechanics. HEART: NSR, no MRG. ABDOMEN: Abdomen soft, non-tender, no masses, no rebound or guarding. BACK: No CVA TTP. SKIN: No rashes and no bruising. UPPER EXTREMITIES: Upper extremities are grossly normal. LOWER EXTREMITIES: Grossly normal, no edema. NEURO EXAM: A&O x3, cranial nerves II-XII grossly intact, normal speech, moves all 4 extremities. Good [id number], no drift and no sensory deficits. No obvious word finding difficulty on exam. Past Med/Surg History Problem List (Updated 12/16/24 @ 22:31 by Davey Rothman MD) Acute hypokalemia (Acute) Hypertension (Acute) Word finding difficulty (Acute) Social History Smoking Status: Never smoker Preferred Language: [place] Feels Safe at Home: Yes Allergies Allergies Allergy/AdvReac Type Severity Reaction Status Date / Time atorvastatin AdvReac MUSCLE Verified 12/16/24 21:12 PAIN AND FOGGINESS evolocumab AdvReac Tachycardia Verified 12/16/24 21:12 Home Meds Home Medications Medication Instructions Recorded Confirmed ezetimibe 10 mg tablet 10 mg PO QAM 12/16/24 12/16/24 hydrochlorothiazide 25 mg tablet 25 mg PO QAM 12/16/24 12/16/24 letrozole 2.5 mg tablet 2.5 mg PO QAM 12/16/24 12/16/24 metoprolol succinate 25 mg 25 mg PO QAM 12/16/24 12/16/24 tablet,extended release 24 hr multivitamin with iron 1 tab PO DAILY 12/16/24 12/16/24 Results & Data (ED) Vital Signs Vital Signs - 24 hr 12/16/24 20:13 12/16/24 20:43 12/16/24 20:50 Temperature 36.7 C Temperature Source Temporal Artery Scan Pulse Rate 86 85 Pulse Rate [Apical] Respiratory Rate 16 Respiratory Effort / Characteristics Blood Pressure 203/127 H Blood Pressure [Right Arm] Blood Pressure Mean 152 Blood Pressure Mean [Right Arm] Pulse Oximetry 96 97 Oxygen Delivery Method Room Air Room Air Sepsis Recent Fever Within 48 Hours No Sepsis New/Unexplained Change in Mental Status No Sepsis Action Taken by Nursing No Action Required 12/16/24 20:50 12/16/24 22:11 Temperature Temperature Source Pulse Rate Pulse Rate [Apical] 77 67 Respiratory Rate 18 16 Respiratory Effort / Characteristics Non-Labored Spontaneous Non-Labored Spontaneous Blood Pressure Blood Pressure [Right Arm] 151/99 H 132/87 Blood Pressure Mean Blood Pressure Mean [Right Arm] 116 102 Pulse Oximetry 97 95 Oxygen Delivery Method Room Air Room Air Sepsis Recent Fever Within 48 Hours Sepsis New/Unexplained Change in Mental Status Sepsis Action Taken by Retirement Medications Current Medication List: was personally reviewed by me Laboratory Data Attestation: I reviewed the patient's lab results. 12/16/24 20:25 12/16/24 20:25 Lab Results 12/16/24 12/16/24 Range/Units 20:25 20:31 WBC 7.68 (4.8-10.8) K/ul RBC 4.67 (4.20-5.40) M/uL Hgb 14.4 (12.0-16.0) g/dl POC Hgb 15.0 (12.0-16.0) g/dl Hct 42.0 (37.0-47.0) % POC Hct 44 (37-47) % MCV 89.9 (80.0-100.0) fL MCH 30.8 (25.0-34.0) pg MCHC 34.3 (32.0-36.0) g/dL RDW Std Deviation 42.2 (36.4-46.3) fL RDW Coeff of Gabriela 13.0 (11.5-14.5) % Plt Count 251 (130-400) K/uL MPV 8.3 L (9.4-12.4) fL Immature Gran % (Auto) 0.1 % Neut % (Auto) 41.7 % Lymph % (Auto) 45.2 % [place] % (Auto) 8.6 % Eos % (Auto) 3.6 % Baso % (Auto) 0.8 % Neut # (Auto) 3.20 (1.40-6.50) K/uL Lymph # (Auto) 3.47 H (1.20-3.40) K/uL [place] # (Auto) 0.66 H (0.11-0.59) K/uL Eos # (Auto) 0.28 (0.00-0.50) K/uL Baso # (Auto) 0.06 (0.00-0.20) K/uL Immature Gran # (Auto) 0.01 (0.01-0.20) K/uL PT 9.7 (9.0-12.0) Seconds INR 0.9 (0.9-1.1) APTT 26 (21-31) Seconds PTT Ratio 1.0 POC Sodium 141 (135-144) mmol/L Sodium 139 (136-145) mmol/L POC Potassium 3.3 (3.3-5.0) mmol/L Potassium 3.3 L (3.5-5.1) mmol/L POC Chloride 100 L (101-112) mmol/L Chloride 102 (98-107) mmol/L Carbon Dioxide 31 (21-32) mmol/L POC Total CO2 25 (24-31) mmol/L Anion Gap 6 (3-11) POC Anion Gap 20.0 (16-25) mmol/L POC BUN 14 (7-18) mg/dl BUN 13 (6-23) mg/dl Creatinine 0.89 (0.6-1.2) mg/dl POC Creatinine 1.0 (0.6-1.3) mg/dl Est Cr Clr Drug Dosing 68.3 ml/min eGFR 72.35 BUN/Creatinine Ratio 14.6 (10-20) Glucose 81 (70-99(Fasting)) mg/dl POC Glucose (other) 85 (70-99) mg/dl Calcium 9.7 (8.6-10.3) mg/dl POC Ioniz Calcium Woody 1.18 (1.12-1.32) mmol/l Magnesium 1.9 (1.7-2.4) mg/dl Total Bilirubin 0.3 (0.2-1.0) mg/dl AST 17 (13-39) U/L ALT 18 (7-52) U/L Alkaline Phosphatase 84 (34-104) U/L Troponin I High Sens 3.9 (0-14) pg/ml Total Protein 8.1 (6.0-8.3) gm/dl Albumin 4.7 (3.4-5.0) gm/dl Globulin 3.4 (2.5-4.0) gm/dl Albumin/Globulin Ratio 1.4 (0.9-2) Administered Medications Discontinued Medications Aspirin (Aspirin Chew 324 Mg) 81 mg PO NOW STA Stop: 12/16/24 21:24 Last Admin: 12/16/24 21:53 Dose: 81 mg Documented By: CHAGO Ioversol (Optiray 320 125ml) 119 ml IV ONCE ONE Stop: 12/16/24 20:38 Last Admin: 12/16/24 20:38 Dose: 119 ml Documented By: ANALI Imaging Data Radiologist's Impression: Head CT 12/16/24 20:24 CR Exam(s): CT HEAD Without Contrast EXAM: CT Head Without Intravenous Contrast CLINICAL HISTORY: neuro deficit, acute stroke suspected. TECHNIQUE: Axial computed tomography images of the head/brain without intravenous contrast. CTDI is 13.04 mGy and DLP is 1162.18 mGy-cm. Automated exposure control was utilized for the study. A dose lowering technique was utilized adhering to the principles of ALARA. COMPARISON: No relevant prior studies available. FINDINGS: Brain: Unremarkable. No hemorrhage. No significant white matter disease. No edema. Ventricles: Unremarkable. No ventriculomegaly. Bones/joints: Unremarkable. No acute fracture. Soft tissues: Scattered overlying rounded, partially calcified lesions in the overlying scalp are presumed dermatologic processes, such as inclusion cysts. Sinuses: Unremarkable as visualized. No acute sinusitis. Mastoid air cells: Unremarkable as visualized. No mastoid effusion. IMPRESSION: No acute intracranial process identified. Communications: Call Doctor Stroke Electronically signed by: Richard Rodriguez MD 12/16/24 20:57 PM Head CTA 12/16/24 20:24 CR Exam(s): CTA HEAD With Contrast IV Amt: 119ml optiray 320 EXAM: CT Angiography Head With Intravenous Contrast CLINICAL HISTORY: neuro deficit, acute stroke suspected. TECHNIQUE: Axial computed tomographic angiography images of the head with intravenous contrast. CTDI is 13.04 mGy and DLP is 1162.18 mGy-cm. Automated exposure control was utilized for the study. A dose lowering technique was utilized adhering to the principles of ALARA. MIP reconstructed images were created and reviewed. CONTRAST: Patient received 119ml optiray 320 of IV contrast COMPARISON: Noncontrast examination performed earlier. FINDINGS: Right internal carotid artery: No acute findings. Intracranial segment is patent with no significant stenosis. No aneurysm. Right anterior cerebral artery: Unremarkable. No occlusion or significant stenosis. No aneurysm. Right middle cerebral artery: Unremarkable. No occlusion or significant stenosis. No aneurysm. Right posterior cerebral artery: Unremarkable. No occlusion or significant stenosis. No aneurysm. Right vertebral artery: Unremarkable as visualized. Left internal carotid artery: No acute findings. Intracranial segment is patent with no significant stenosis. No aneurysm. Left anterior cerebral artery: Unremarkable. No occlusion or significant stenosis. No aneurysm. Left middle cerebral artery: Unremarkable. No occlusion or significant stenosis. No aneurysm. Left posterior cerebral artery: Unremarkable. No occlusion or significant stenosis. No aneurysm. Left vertebral artery: Unremarkable as visualized. Basilar artery: Unremarkable. No occlusion or significant stenosis. No aneurysm. Brain: No abnormal parenchymal enhancement. IMPRESSION: Negative intracranial CTA examination. Communications: Call Doctor Stroke Electronically signed by: Richard Rodriguez MD 12/16/24 20:59 PM Neck CTA 12/16/24 20:24 CR Exam(s): CTA NECK With Contrast IV Amt: 119ml optiray 320 EXAM: CT Angiography Neck With Intravenous Contrast CLINICAL HISTORY: neuro deficit, acute stroke suspected. TECHNIQUE: Routine carotid CT angiography protocol was performed with intravenous contrast. NASCET criteria using the distal ICAs for comparison were used for evaluation of stenoses. CTDI is 13.04 mGy and DLP is 1162.18 mGy-cm. Automated exposure control was utilized for the study. A dose lowering technique was utilized adhering to the principles of ALARA. MIP reconstructed images were created and reviewed. CONTRAST: Patient received 119ml optiray 320 of IV contrast COMPARISON: None. FINDINGS: VASCULATURE: Right common carotid artery: Unremarkable. No occlusion or significant stenosis. No dissection. Right internal carotid artery: The right internal carotid artery is tortuous but is widely patent. Extracranial segment is patent with no occlusion or significant stenosis. No dissection. Right external carotid artery: Unremarkable. No occlusion. Right vertebral artery: Unremarkable. No occlusion or significant stenosis. No dissection. Left common carotid artery: Unremarkable. No occlusion or significant stenosis. No dissection. Left internal carotid artery: The left internal carotid artery is tortuous but is widely patent. Extracranial segment is patent with no occlusion or significant stenosis. No dissection. Left external carotid artery: Unremarkable. No occlusion. Left vertebral artery: Unremarkable. No occlusion or significant stenosis. No dissection. Brachiocephalic and subclavian arteries: There is a normal branching pattern of the proximal great vessels. No significant ostial stenosis. Aorta: The aortic arch is patent without dissection or aneurysm. NECK: Bones/joints: Unremarkable. No acute fracture. Soft tissues: Unremarkable. Lung apices: Clear. CAROTID STENOSIS REFERENCE USING NASCET CRITERIA: % ICA stenosis = (1 - narrowest ICA diameter/diameter of distal cervical ICA) x 100. Mild - <50% stenosis. Moderate - 50-69% stenosis. Severe - 70-94% stenosis. Near occlusion - 95-99% stenosis. Occluded - 100% stenosis. IMPRESSION: Negative cervical CTA examination. No significant stenosis or occlusion. Communications: Call Doctor Stroke Electronically signed by: Richard Rodriguez MD 12/16/24 21:01 PM Discharge Plan Visit Data Chief Complaint: Altered Mental Status Stated Complaint: CONFUSION, PAIN IN HEAD AND EARS ED Provider: Davey Rothman Discharge Problem: Word finding difficulty, Hypertension, Acute hypokalemia Forms Stand Alone Forms: [facility] Prescriptions Prescriptions: No Action hydrochlorothiazide 25 mg tablet 25 mg PO QAM metoprolol succinate 25 mg tablet extended release 24 hr 25 mg PO QAM letrozole 2.5 mg tablet 2.5 mg PO QAM ezetimibe 10 mg tablet 10 mg PO QAM multivitamin with iron Tablet 1 tab PO DAILY Referrals Referrals: Rosibel Bhagat DO [Primary Care Provider] - Discharge Problem: Hypertension Qualifiers: Hypertension type: unspecified Qualified Code(s): I10 - Essential (primary) hypertension
[2024-12-16 20:43] LABS: iSTAT Ionized Calcium 1.18 mmol/l (1.12-1.32); iSTAT Potassium 3.3 mmol/L (3.3-5.0)
[2024-12-16 20:43] LABS: Basophils # (auto) 0.06 K/uL (0.00-0.20); Basophils % (auto) 0.8 %; Eosinophils # (auto) 0.28 K/uL (0.00-0.50); Eosinophils % (auto) 3.6 %; Hemoglobin 14.4 g/dl (12.0-16.0); Immature Granulocytes # (auto) 0.01 K/uL (0.01-0.20); Immature Granulocytes % (auto) 0.1 %; Lymphocytes # (auto) 3.47 K/uL (1.20-3.40); Lymphocytes % (auto) 45.2 %; Mean Corpuscular Hemoglobin 30.8 pg (25.0-34.0); Mean Corpuscular Hgb Conc 34.3 g/dL (32.0-36.0); Mean Corpuscular Volume 89.9 fL (80.0-100.0); Mean Platelet Volume 8.3 fL (9.4-12.4); Monocytes # (auto) 0.66 K/uL (0.11-0.59); Monocytes % (auto) 8.6 %; Neutrophils % (auto) 41.7 %; Platelet Count 251 K/uL (130-400); RDW Standard Deviation 42.2 fL (36.4-46.3); Red Blood Count 4.67 M/uL (4.20-5.40); White Blood Count 7.68 K/ul (4.8-10.8)
--- NOTE | 2024-12-16 20:59 | CT Scan Report ---
Exam(s): CT HEAD Without Contrast EXAM: CT Head Without Intravenous Contrast CLINICAL HISTORY: neuro deficit, acute stroke suspected. TECHNIQUE: Axial computed tomography images of the head/brain without intravenous contrast. CTDI is 13.04 mGy and DLP is 1162.18 mGy-cm. Automated exposure control was utilized for the study. A dose lowering technique was utilized adhering to the principles of ALARA. COMPARISON: No relevant prior studies available. FINDINGS: Brain: Unremarkable. No hemorrhage. No significant white matter disease. No edema. Ventricles: Unremarkable. No ventriculomegaly. Bones/joints: Unremarkable. No acute fracture. Soft tissues: Scattered overlying rounded, partially calcified lesions in the overlying scalp are presumed dermatologic processes, such as inclusion cysts. Sinuses: Unremarkable as visualized. No acute sinusitis. Mastoid air cells: Unremarkable as visualized. No mastoid effusion. IMPRESSION: No acute intracranial process identified. Communications: Call Doctor Stroke Electronically signed by: Richard Rodriguez MD 12/16/24 20:57 PM
[2024-12-16 21:00] LABS: Albumin Globulin Ratio 1.4 (0.9-2); Albumin Level 4.7 gm/dl (3.4-5.0); BUN Creatinine Ratio 14.6 (10-20); Bilirubin,Total 0.3 mg/dl (0.2-1.0); Calcium 9.7 mg/dl (8.6-10.3); Creatinine Clr Calc Pharmacy 68.3 ml/min; Globulin 3.4 gm/dl (2.5-4.0); Magnesium 1.9 mg/dl (1.7-2.4); Potassium 3.3 mmol/L (3.5-5.1); Total Protein 8.1 gm/dl (6.0-8.3)
--- NOTE | 2024-12-16 21:01 | CT Scan Report ---
Exam(s): CTA HEAD With Contrast IV Amt: 119ml optiray 320 EXAM: CT Angiography Head With Intravenous Contrast CLINICAL HISTORY: neuro deficit, acute stroke suspected. TECHNIQUE: Axial computed tomographic angiography images of the head with intravenous contrast. CTDI is 13.04 mGy and DLP is 1162.18 mGy-cm. Automated exposure control was utilized for the study. A dose lowering technique was utilized adhering to the principles of ALARA. MIP reconstructed images were created and reviewed. CONTRAST: Patient received 119ml optiray 320 of IV contrast COMPARISON: Noncontrast examination performed earlier. FINDINGS: Right internal carotid artery: No acute findings. Intracranial segment is patent with no significant stenosis. No aneurysm. Right anterior cerebral artery: Unremarkable. No occlusion or significant stenosis. No aneurysm. Right middle cerebral artery: Unremarkable. No occlusion or significant stenosis. No aneurysm. Right posterior cerebral artery: Unremarkable. No occlusion or significant stenosis. No aneurysm. Right vertebral artery: Unremarkable as visualized. Left internal carotid artery: No acute findings. Intracranial segment is patent with no significant stenosis. No aneurysm. Left anterior cerebral artery: Unremarkable. No occlusion or significant stenosis. No aneurysm. Left middle cerebral artery: Unremarkable. No occlusion or significant stenosis. No aneurysm. Left posterior cerebral artery: Unremarkable. No occlusion or significant stenosis. No aneurysm. Left vertebral artery: Unremarkable as visualized. Basilar artery: Unremarkable. No occlusion or significant stenosis. No aneurysm. Brain: No abnormal parenchymal enhancement. IMPRESSION: Negative intracranial CTA examination. Communications: Call Doctor Stroke Electronically signed by: Richard Rodriguez MD 12/16/24 20:59 PM
--- NOTE | 2024-12-16 21:02 | CT Scan Report ---
Exam(s): CTA NECK With Contrast IV Amt: 119ml optiray 320 EXAM: CT Angiography Neck With Intravenous Contrast CLINICAL HISTORY: neuro deficit, acute stroke suspected. TECHNIQUE: Routine carotid CT angiography protocol was performed with intravenous contrast. NASCET criteria using the distal ICAs for comparison were used for evaluation of stenoses. CTDI is 13.04 mGy and DLP is 1162.18 mGy-cm. Automated exposure control was utilized for the study. A dose lowering technique was utilized adhering to the principles of ALARA. MIP reconstructed images were created and reviewed. CONTRAST: Patient received 119ml optiray 320 of IV contrast COMPARISON: None. FINDINGS: VASCULATURE: Right common carotid artery: Unremarkable. No occlusion or significant stenosis. No dissection. Right internal carotid artery: The right internal carotid artery is tortuous but is widely patent. Extracranial segment is patent with no occlusion or significant stenosis. No dissection. Right external carotid artery: Unremarkable. No occlusion. Right vertebral artery: Unremarkable. No occlusion or significant stenosis. No dissection. Left common carotid artery: Unremarkable. No occlusion or significant stenosis. No dissection. Left internal carotid artery: The left internal carotid artery is tortuous but is widely patent. Extracranial segment is patent with no occlusion or significant stenosis. No dissection. Left external carotid artery: Unremarkable. No occlusion. Left vertebral artery: Unremarkable. No occlusion or significant stenosis. No dissection. Brachiocephalic and subclavian arteries: There is a normal branching pattern of the proximal great vessels. No significant ostial stenosis. Aorta: The aortic arch is patent without dissection or aneurysm. NECK: Bones/joints: Unremarkable. No acute fracture. Soft tissues: Unremarkable. Lung apices: Clear. CAROTID STENOSIS REFERENCE USING NASCET CRITERIA: % ICA stenosis = (1 - narrowest ICA diameter/diameter of distal cervical ICA) x 100. Mild - <50% stenosis. Moderate - 50-69% stenosis. Severe - 70-94% stenosis. Near occlusion - 95-99% stenosis. Occluded - 100% stenosis. IMPRESSION: Negative cervical CTA examination. No significant stenosis or occlusion. Communications: Call Doctor Stroke Electronically signed by: Richard Rodriguez MD 12/16/24 21:01 PM
[2024-12-16 21:07] LABS: Troponin I High Sensitivity 3.9 pg/ml (0-14)
[2024-12-16 21:12] LABS: INR 0.9 (0.9-1.1); Partial Thromboplastin Time 26 Seconds (21-31); Prothrombin Time 9.7 Seconds (9.0-12.0)
[2024-12-16] MEDS: ASPIRIN CHEW 324 MG PO STA (21:53)
[2024-12-16] MEDS: POTASSIUM CHLORIDE CRTAB 20 MEQ TABCR PO STA (22:46)
--- NOTE | 2024-12-17 01:13 | History & Physical Report ---
Date of Service December 17, 2024 Assessment & Plan (1) Word finding difficulty: Plan: 64-year-old female with past medical history significant for familial hypercholesterolemia, hyperlipidemia, hypertension, obesity, history of endometrial cancer presents with strokelike symptoms. Around 7:30 PM patient suddenly had word finding difficulty and was having some memory issues like not remembering family members names and it lasted about 15 minutes and subsided. Currently back to normal. During the episode she has some headache. Now she is getting on and off earaches. Denies any fevers. No difficulty swallowing. No runny nose or sore throat. No cough. Denies chest pain. Denies shortness of breath. No nausea. No abdominal pain. Normal bowel and bladder movements. Currently resting comfortably and hemodynamically stable. Word-finding difficulty Could not remember family members Lasted for [address] head, CTA head and neck unremarkable Will do full stroke workup Will follow MRI scan Echo Telemetry Neurochecks Continue aspirin will give a dose of iv thiamine Will check lipid profile HbA1c levels Neuroconsult in a.m. for further recommendations History of hyperlipidemia On Zetia Will follow lipid profile Hypertension Hydrochlorothiazide metoprolol succinate Will monitor History of endometrial cancer Recurrent Status post robotic assisted laparoscopic hysterectomy with bilateral salpingo- oophorectomy in January 2021 Status post chemo Currently on letrozole Follows with heme-onc DVT prophylaxis SCDs Disposition Telemetry Full code. History of Present Illness Chief Complaint: Strokelike symptoms Primary Care Provider: Rosibel Bhagat, 64-year-old female with past medical history significant for familial hypercholesterolemia, hyperlipidemia, hypertension, obesity, history of endometrial cancer presents with strokelike symptoms. Around 7:30 PM patient suddenly had word finding difficulty and was having some memory issues like not remembering family members names and it lasted about 15 minutes and subsided. Currently back to normal. During the episode she has some headache. Now she is getting on and off earaches. Denies any fevers. No difficulty swallowing. No runny nose or sore throat. No cough. Denies chest pain. Denies shortness of breath. No nausea. No abdominal pain. Normal bowel and bladder movements. Currently resting comfortably and hemodynamically stable. Past medical history. As mentioned above Past surgical history. Breast biopsy. Colonoscopy dental surgery. Robotic laparoscopic hysterectomy with removal of tubes and ovaries. Bilateral cataracts. Family history. . No smoking. Alcohol once a month. No drug use. Social history. Brother had DVTs. Maternal cousin had breast cancer. Paternal cousin had breast cancer. Maternal grandmother had breast cancer. Father had MA. Father had Hodgkin's lymphoma. Paternal grandfather had Hodgkin's lymphoma. Mother had hypertension. Allergies Allergy/AdvReac Type Severity Reaction Status Date / Time atorvastatin AdvReac MUSCLE Verified 12/16/24 21:12 PAIN AND FOGGINESS evolocumab AdvReac Tachycardia Verified 12/16/24 21:12 Home Medications Medication Instructions Recorded Confirmed Type ezetimibe 10 mg tablet 10 mg PO QAM 12/16/24 12/16/24 History hydrochlorothiazide 25 mg tablet 25 mg PO QAM 12/16/24 12/16/24 History letrozole 2.5 mg tablet 2.5 mg PO QAM 12/16/24 12/16/24 History metoprolol succinate 25 mg 25 mg PO QAM 12/16/24 12/16/24 History tablet,extended release 24 hr multivitamin with iron 1 tab PO DAILY 12/16/24 12/16/24 History Past Med/Surg History Problem List (Updated 12/16/24 @ 22:31 by Davey Rothman MD) Acute hypokalemia (Acute) Hypertension (Acute) Word finding difficulty (Acute) Social History Smoking Status: Never smoker Hx Alcohol Use: No Hx Substance Use: No Preferred Language: Jamaican Communication Ability: Effective Digital Content Producer Required: No Beliefs That Will Affect Care: None Current Living Situation: Spouse Feels Safe at Home: Yes Assistive Devices: Glasses Review of Systems Review of Systems: All systems reviewed & are unremarkable except as noted in HPI & below Physical Exam Physical Exam: General- Not in distress Head- atraumatic Eyes- PERRL. ENT- oropharynx clear, external ear canal no erythema seen Neck- supple, no JVD. Lungs- clear to auscultation no wheezing or crackles. Heart- regular rate and rhythm; no murmur, no gallop. Abdomen- normal bowel sounds, soft, nontender, no distension Extremities- no pretibial edema, no erythema seen Neuro- alert, oriented PERRL, EOMI; no facial palsy; no dysarthria; motor 5/5 bilaterally; no pronator drift, co ordination of movements normal, sensations intact, position sense intact Results & Data Results & Data Vital Signs (Past 12 Hours) Vital Signs Temp Pulse Pulse Resp BP BP Pulse Ox 12/17/24 00:34 67 12/17/24 00:00 69 16 123/87 97 12/16/24 23:00 36.7 C 66 18 134/86 99 12/16/24 22:11 67 16 132/87 95 12/16/24 20:50 77 18 151/99 H 97 12/16/24 20:50 97 12/16/24 20:43 85 12/16/24 20:13 36.7 C 86 16 203/127 H 96 O2 Del Method 12/17/24 00:34 12/17/24 00:00 Room Air 12/16/24 23:00 Room Air 12/16/24 22:11 Room Air 12/16/24 20:50 Room Air 12/16/24 20:50 Room Air 12/16/24 20:43 12/16/24 20:13 Room Air Diagnostic Findings Laboratory Results WBC 7.68 K/ul (4.8-10.8) 12/16/24 20: RBC 4.67 M/uL (4.20-5.40) 12/16/24 20: Hgb 14.4 g/dl (12.0-16.0) 12/16/24 20: POC Hgb 15.0 g/dl (12.0-16.0) 12/16/24 20: Hct 42.0 % (37.0-47.0) 12/16/24 20: POC Hct 44 % (37-47) 12/16/24 20: MCV 89.9 fL (80.0-100.0) 12/16/24 20: MCH 30.8 pg (25.0-34.0) 12/16/24 20: MCHC 34.3 g/dL (32.0-36.0) 12/16/24 20: RDW Std Deviation 42.2 fL (36.4-46.3) 12/16/24 20: RDW Coeff of Gabriela 13.0 % (11.5-14.5) 12/16/24: Plt Count 251 K/uL (130-400) 12/16/24 20:25 MPV 8.3 fL (9.4-12.4) L 12/16/24 20: Immature Gran % (Auto) 0.1 % 12/16/24 20: Neut % (Auto) 41.7 % 12/16/24 20: Lymph % (Auto) 45.2 % 12/16/24 20:25 [place] % (Auto) 8.6 % 12/16/24 20: Eos % (Auto) 3.6 % 12/16/24 20:25 Baso % (Auto) 0.8 % 12/16/24: Neut # (Auto) 3.20 K/uL (1.40-6.50) 12/16/24: Lymph # (Auto) 3.47 K/uL (1.20-3.40) H 12/16/24 20:25 [place] # (Auto) 0.66 K/uL (0.11-0.59) H 12/16/24 20: Eos # (Auto) 0.28 K/uL (0.00-0.50) 12/16/24 20:25 Baso # (Auto) 0.06 K/uL (0.00-0.20) 12/16/24 20: Immature Gran # (Auto) 0.01 K/uL (0.01-0.20) 12/16/24 20:25 PT 9.7 Seconds (9.0-12.0) 12/16/24 20: INR 0.9 (0.9-1.1) 12/16/24 20: APTT 26 Seconds (21-31) 12/16/24 20:25 PTT Ratio 1.0 12/16/24 20: POC Sodium 141 mmol/L (135-144) 12/16/24 20:31 Sodium 139 mmol/L (136-145) 12/16/24 20:25 POC Potassium 3.3 mmol/L (3.3-5.0) 12/16/24 20:31 Potassium 3.3 mmol/L (3.5-5.1) L 12/16/24 20:25 POC Chloride 100 mmol/L (101-112) L 12/16/24 20: Chloride 102 mmol/L (98-107) 12/16/24 20: Carbon Dioxide 31 mmol/L (21-32) 12/16/24 20: POC Total CO2 25 mmol/L (24-31) 12/16/24 20: Anion Gap 6 (3-11) 12/16/24 20:25 POC Anion Gap 20.0 mmol/L (16-25) 12/16/24 20: POC BUN 14 mg/dl (7-18) 12/16/24 20: BUN 13 mg/dl (6-23) 12/16/24 20: Creatinine 0.89 mg/dl (0.6-1.2) 12/16/24 20: POC Creatinine 1.0 mg/dl (0.6-1.3) 12/16/24: Est Cr Clr Drug Dosing 68.3 ml/min 12/16/24 20: eGFR 72.35 12/16/24 20: BUN/Creatinine Ratio 14.6 (10-20) 12/16/24 20: Glucose 81 mg/dl (70-99(Fasting)) 12/16/24 20: POC Glucose (other) 85 mg/dl (70-99) 12/16/24: Calcium 9.7 mg/dl (8.6-10.3) 12/16/24 20: POC Ioniz Calcium Woody 1.18 mmol/l (1.12-1.32) 12/16/24: Magnesium 1.9 mg/dl (1.7-2.4) 12/16/24: Total Bilirubin 0.3 mg/dl (0.2-1.0) 12/16/24 20: AST 17 U/L (13-39) 12/16/24: ALT 18 U/L (7-52) 12/16/24 20: Alkaline Phosphatase 84 U/L (34-104) 12/16/24 20: Troponin I High Sens 3.9 pg/ml (0-14) 12/16/24 20: Total Protein 8.1 gm/dl (6.0-8.3) 12/16/24 20: Albumin 4.7 gm/dl (3.4-5.0) 12/16/24: Globulin 3.4 gm/dl (2.5-4.0) 12/16/24 20:25 Albumin/Globulin Ratio 1.4 (0.9-2) 12/16/24 20:[address] 12/16/24 20:24 CR Exam(s): CT HEAD Without Contrast EXAM: CT Head Without Intravenous Contrast CLINICAL HISTORY: neuro deficit, acute stroke suspected. TECHNIQUE: Axial computed tomography images of the head/brain without intravenous contrast. CTDI is 13.04 mGy and DLP is 1162.18 mGy-cm. Automated exposure control was utilized for the study. A dose lowering technique was utilized adhering to the principles of ALARA. COMPARISON: No relevant prior studies available. FINDINGS: Brain: Unremarkable. No hemorrhage. No significant white matter disease. No edema. Ventricles: Unremarkable. No ventriculomegaly. Bones/joints: Unremarkable. No acute fracture. Soft tissues: Scattered overlying rounded, partially calcified lesions in the overlying scalp are presumed dermatologic processes, such as inclusion cysts. Sinuses: Unremarkable as visualized. No acute sinusitis. Mastoid air cells: Unremarkable as visualized. No mastoid effusion. IMPRESSION: No acute intracranial process identified. Communications: Call Doctor Stroke Electronically signed by: Richard Rodriguez MD 12/16/24 20:57 PM Head CTA 12/16/24 20:24 CR Exam(s): CTA HEAD With Contrast IV Amt: 119ml optiray 320 EXAM: CT Angiography Head With Intravenous Contrast CLINICAL HISTORY: neuro deficit, acute stroke suspected. TECHNIQUE: Axial computed tomographic angiography images of the head with intravenous contrast. CTDI is 13.04 mGy and DLP is 1162.18 mGy-cm. Automated exposure control was utilized for the study. A dose lowering technique was utilized adhering to the principles of ALARA. MIP reconstructed images were created and reviewed. CONTRAST: Patient received 119ml optiray 320 of IV contrast COMPARISON: Noncontrast examination performed earlier. FINDINGS: Right internal carotid artery: No acute findings. Intracranial segment is patent with no significant stenosis. No aneurysm. Right anterior cerebral artery: Unremarkable. No occlusion or significant stenosis. No aneurysm. Right middle cerebral artery: Unremarkable. No occlusion or significant stenosis. No aneurysm. Right posterior cerebral artery: Unremarkable. No occlusion or significant stenosis. No aneurysm. Right vertebral artery: Unremarkable as visualized. Left internal carotid artery: No acute findings. Intracranial segment is patent with no significant stenosis. No aneurysm. Left anterior cerebral artery: Unremarkable. No occlusion or significant stenosis. No aneurysm. Left middle cerebral artery: Unremarkable. No occlusion or significant stenosis. No aneurysm. Left posterior cerebral artery: Unremarkable. No occlusion or significant stenosis. No aneurysm. Left vertebral artery: Unremarkable as visualized. Basilar artery: Unremarkable. No occlusion or significant stenosis. No aneurysm. Brain: No abnormal parenchymal enhancement. IMPRESSION: Negative intracranial CTA examination. Communications: Call Doctor Stroke Electronically signed by: Richard Rodriguez MD 12/16/24 20:59 PM Neck CTA 12/16/24 20:24 CR Exam(s): CTA NECK With Contrast IV Amt: 119ml optiray 320 EXAM: CT Angiography Neck With Intravenous Contrast CLINICAL HISTORY: neuro deficit, acute stroke suspected. TECHNIQUE: Routine carotid CT angiography protocol was performed with intravenous contrast. NASCET criteria using the distal ICAs for comparison were used for evaluation of stenoses. CTDI is 13.04 mGy and DLP is 1162.18 mGy-cm. Automated exposure control was utilized for the study. A dose lowering technique was utilized adhering to the principles of ALARA. MIP reconstructed images were created and reviewed. CONTRAST: Patient received 119ml optiray 320 of IV contrast COMPARISON: None. FINDINGS: VASCULATURE: Right common carotid artery: Unremarkable. No occlusion or significant stenosis. No dissection. Right internal carotid artery: The right internal carotid artery is tortuous but is widely patent. Extracranial segment is patent with no occlusion or significant stenosis. No dissection. Right external carotid artery: Unremarkable. No occlusion. Right vertebral artery: Unremarkable. No occlusion or significant stenosis. No dissection. Left common carotid artery: Unremarkable. No occlusion or significant stenosis. No dissection. Left internal carotid artery: The left internal carotid artery is tortuous but is widely patent. Extracranial segment is patent with no occlusion or significant stenosis. No dissection. Left external carotid artery: Unremarkable. No occlusion. Left vertebral artery: Unremarkable. No occlusion or significant stenosis. No dissection. Brachiocephalic and subclavian arteries: There is a normal branching pattern of the proximal great vessels. No significant ostial stenosis. Aorta: The aortic arch is patent without dissection or aneurysm. NECK: Bones/joints: Unremarkable. No acute fracture. Soft tissues: Unremarkable. Lung apices: Clear. CAROTID STENOSIS REFERENCE USING NASCET CRITERIA: % ICA stenosis = (1 - narrowest ICA diameter/diameter of distal cervical ICA) x 100. Mild - <50% stenosis. Moderate - 50-69% stenosis. Severe - 70-94% stenosis. Near occlusion - 95-99% stenosis. Occluded - 100% stenosis. IMPRESSION: Negative cervical CTA examination. No significant stenosis or occlusion. Communications: Call Doctor Stroke Electronically signed by: Richard Rodriguez MD 12/16/24 21:01 PM ECG Additional Comments: ECG. Normal sinus rhythm rate 72. No acute ST changes seen. Code Status & VTE Plan VTE Prophylaxis Plan VTE Prophylaxis will be ordered: Yes
[2024-12-17] MEDS ORDERED: POLYETHYLENE (MIRALAX) 17 GM PACK PO PRN (02:43)
[2024-12-17] MEDS ORDERED: PHARMACIST DISCHARGE MED REC CONSULT PRN (02:43)
[2024-12-17] MEDS ORDERED: ACETAMINOPHEN 325 MG TAB PO PRN (02:43)
[2024-12-17] MEDS ORDERED: NITROGLYCERIN SL 0.4 MG/TAB TAB SL PRN (02:43)
[2024-12-17] MEDS: SODIUM CHLORIDE 0.9% 1,000 ML IV SCH (03:37)
[2024-12-17] MEDS: THIAMINE HCL 200 MG in SODIUM CHLORIDE 0.9% 50 ML IV STA (03:37)
[2024-12-17 05:58] LABS: Basophils # (auto) 0.05 K/uL (0.00-0.20); Basophils % (auto) 0.8 %; Eosinophils # (auto) 0.29 K/uL (0.00-0.50); Eosinophils % (auto) 4.7 %; Hematocrit (blood only) 38.5 % (37.0-47.0); Hemoglobin 12.8 g/dl (12.0-16.0); Immature Granulocytes # (auto) 0.01 K/uL (0.01-0.20); Immature Granulocytes % (auto) 0.2 %; Lymphocytes % (auto) 38.9 %; Mean Corpuscular Hemoglobin 30.5 pg (25.0-34.0); Mean Corpuscular Hgb Conc 33.2 g/dL (32.0-36.0); Mean Corpuscular Volume 91.7 fL (80.0-100.0); Mean Platelet Volume 8.6 fL (9.4-12.4); Monocytes # (auto) 0.54 K/uL (0.11-0.59); Monocytes % (auto) 8.8 %; Neutrophils # (auto) 2.88 K/uL (1.40-6.50); Neutrophils % (auto) 46.6 %; Platelet Count 203 K/uL (130-400); RDW Standard Deviation 42.9 fL (36.4-46.3); White Blood Count 6.17 K/ul (4.8-10.8)
[2024-12-17 06:16] LABS: BUN Creatinine Ratio 17.9 (10-20); Calcium 8.9 mg/dl (8.6-10.3); Chol HDL Ratio 7.9 (0-5); Creatinine Clr Calc Pharmacy 89.7 ml/min; Potassium 3.8 mmol/L (3.5-5.1)
[2024-12-17 08:28] LABS: Estimated Average Glucose 120 mg/dl; Hemoglobin A1C 5.8 % (4.5-5.6)
[2024-12-17] MEDS: MULTIVITAMIN TAB PO SCH (09:33)
[2024-12-17] MEDS: hydroCHLOROthiazide 25 MG TAB PO SCH (09:33)
[2024-12-17] MEDS: METOPROLOL SUCC 25MG EXT REL TAB PO SCH (09:33)
[2024-12-17] MEDS: EZETIMIBE 10 MG TAB PO SCH (09:33)
[2024-12-17] MEDS: LETROZOLE 2.5 MG TAB PO SCH (09:34)
--- NOTE | 2024-12-17 10:58 | Magnetic Resonance Report ---
EXAM: MR brain wo con CLINICAL HISTORY: word finding difficulty TECHNIQUE: MRI of the brain was performed without contrast with multiplanar sequences obtained. COMPARISON: No previous studies are available for comparison. FINDINGS: Brain Parenchyma: Two tiny foci of faint high FLAIR signal are seen in the right parietal subcortical region. They could not be seen in the rest of the sequences. No evidence of acute infarction or hemorrhage. Normal [place]-white matter differentiation. otherwise No mass lesions or focal cortical abnormalities identified. Ventricles and Sulci: Normal size and configuration of the lateral ventricles, third ventricle, and fourth ventricle. No evidence of hydrocephalus or ventriculomegaly. Mildly prominent extra-axial CSF spaces. Posterior Fossa: Cerebellum and brainstem appear normal without evidence of mass lesions or signal abnormalities. Cranial Nerves: Normal course and appearance of cranial nerves identified. Vessels: No evidence of vascular malformations or aneurysms. Intracranial arteries and veins appear normal without evidence of stenosis or occlusion. Orbits and Skull Base: Orbits and skull base structures are normal without evidence of abnormalities. Bilateral maxillary and to a lesser extent bilateral ethmoidal sinusitis. left side deviation of the nasal septum. In the coronal FLAIR sequences, the included part of the sella turcica shows a suspected small 4 mm low signal area in the left side of the pituitary gland which may be an average volume or a small lesion. few faint calcifications of the falx cerebri. Multiple scalp subcutaneous lesions of low signal likely Trichilemmal cysts. the largest one measures 1 cm. IMPRESSION: 1. No evidence of acute infarction or hemorrhage. 2. Right parietal subcortical two tiny foci of faint high FLAIR signal likely nonspecific versus ischemic. 3. Mild brain cortical involutional changes. 4. Suspected small 4 mm low signal area in the left side of the pituitary gland, which may be an average volume or a small lesion. need clinical/laboratory correlation and if needed, further assessment by a dedicated dynamic MRI study of sella turcica. 5. Bilateral maxillary and to less extent bilateral ethmoidal sinusitis. 6. Multiple scalp subcutaneous lesions of low signal likely Trichilemmal cysts. Electronically signed by Roland Hawk 12-17-2024 10:57 AM
[2024-12-17] MEDS: ASPIRIN 81 MG ECTAB PO SCH (11:17)
[2024-12-17] MEDS: ROSUVASTATIN CALCIUM 20 MG TAB PO SCH (11:17)
[2024-12-17 11:46] VITALS: O2SAT 94
--- NOTE | 2024-12-17 13:17 | Electrocardiogram Report ---
Test Reason : Blood Pressure : */* mmHG Vent. Rate : 72 BPM Atrial Rate : 72 BPM P-R Int : 168 ms QRS Dur : 72 ms QT Int : 404 ms P-R-T Axes : 41 4 52 degrees QTcB Int : 442 ms Normal sinus rhythm Septal infarct , age undetermined Abnormal ECG No previous ECGs available Confirmed by Kevin Bradford ([id number]) on 12/17/2024 1:17:22 PM Referred By: REFERRED SELF Confirmed By: Kevin Bradford
--- NOTE | 2024-12-17 14:40 | Neurology Consultation ---
Date of Consultation December 17, 2024 Assessment & Plan (1) Stroke-like episode: Likely related to migraine given the description although cannot entirely exclude a TIA. MRI of the brain reviewed and shows no evidence of acute ischemia, no evidence of previous ischemic insults. CTA shows minimal atherosclerotic disease. Echocardiogram is pending, EKG is normal sinus rhythm Plan Agree with aspirin 81 mg daily in addition to appropriate hyperlipidemic control . Follow-up echocardiogram results. Consider Zio patch as an outpatient. For migraine prevention, given that her symptoms are scarce and random Recommend magnesium glycinate 400 mg daily if tolerated bedtime. Consider riboflavin 400 mg daily in the morning as tolerated. Telehealth Consultation Telehealth Information Telehealth Information: I performed this visit using a real-time telehealth connection between my location and the patients location ([facility]). After connecting through interactive tele-video, patient was identified by name and date of and/or wristband check.Patient (or authorized healthcare motor vehicle representative) was informed that this was a telemedicine visit and it was being conducted confidentially over secure lines. My office door was closed and no one else was present in the room with me.Patient (or authorized healthcare motor vehicle representative) provided consent to proceed with the visit, expressed an understanding of privacy and security of the telemedicine visit, and gave permission to have a hospital motor vehicle representative in the room in order to assist with the visit and to conduct portions of the visit, as needed. I informed the patient (or authorized healthcare motor vehicle representative) that I reviewed their record and presented the opportunity for them to ask any questions regarding the visit today. The patient agreed to participate. History of Present Illness Reason for Consultation: Stroke-like symptoms Requesting Physician: Madalyn Soto MD Attending Physician: Madalyn Soto MD History of Present Illness Duong Green is a 64-year-old female patient with PMH of HLP, HTN, obesity, history of endometrial cancer was presented to the hospital yesterday for word finding difficulty and memory issues.. The patient tells me that she was sitting on her sofa after a meal and wanted to talk to her and suddenly could not find her words, could not remember the name of the garage door, she eventually was able to, then felt that her memory was of when she was trying to remember names of family members. This was during a conversation with her who did not notice any facial weakness or any slurred speech. This was preceded by a fleeting and positive visual symptom where she had a shiny spot of visual loss with her central vision that gradually moved to her peripheral vision and dissipated. (This has happened a handful of times over the past 10 years). She also tells me that she used to get migraine when she was younger but this has not been the issue, she gets occasional headaches from time to time. The whole event lasted for about 15 minutes and improved. She is with no focal neurological deficits currently. Denies any difficulty with walking yesterday or today. Denies any associated chest pain shortness of breath or lightheadedness Allergies Allergy/AdvReac Type Severity Reaction Status Date / Time atorvastatin AdvReac MUSCLE Verified 12/16/24 21:12 PAIN AND FOGGINESS evolocumab AdvReac Tachycardia Verified 12/16/24 21:12 Home Medications Medication Instructions Recorded Confirmed Type ezetimibe 10 mg tablet 10 mg PO QAM 12/16/24 12/16/24 History hydrochlorothiazide 25 mg tablet 25 mg PO QAM 12/16/24 12/16/24 History letrozole 2.5 mg tablet 2.5 mg PO QAM 12/16/24 12/16/24 History metoprolol succinate 25 mg 25 mg PO QAM 12/16/24 12/16/24 History tablet,extended release 24 hr multivitamin with iron 1 tab PO DAILY 12/16/24 12/16/24 History Patient History Social History Smoking Status: Never smoker Hx Alcohol Use: No Hx Substance Use: No Preferred Language: Chadian Communication Ability: Effective Change Management Lead Required: No Beliefs That Will Affect Care: None Current Living Situation: Spouse Feels Safe at Home: Yes Assistive Devices: Glasses Review of Systems Constitutional: Patient denies weight loss, fever, chills, and night sweats Eyes: Patient denies change in vision, tearing, pain, and redness ENT: Patient denies pain, bleeding, rhinorrhea, and dysphagia Cardiovascular: Patient denies chest pain, palpitation, dyspnea at rest, and dyspnea with exertion Respiratory: Patient denies shortness of breath, cough, wheezing, and productive cough GI: Patient denies reflux, pain, constipation, and diarrhea Skin: Patient denies rash, dryness, and itching Allergies/Immune System: Patient denies rhinorrhea, seasonal allergies, reaction to current MEDS, and joint swelling Endocrine: Patient denies weight loss, weight gain, temperature intolerance, and excessive thirst Neurological: All negative unless mentioned in the HPI Physical Exam General Constitutional: Appearance normally developed Head and face: normocephalic and atraumatic Eyes: no ptosis, no anisocoria, and no dysconjugate gaze Respiratory: normal effort Cardiovascular: regular rhythm and regular rate Abdomen: non distended Skin: no rashes, lesions, or ulcers noted Psychiatric: normal judgement and insight, normal mood, and normal affect NEUROLOGIC EXAMINATION: Mental Status:alert, oriented to time, place, person, normal recent memory, normal remote memory, normal attention span, normal concentration, normal language and normal fund of knowledge Cranial Nerves: CN 2 - no visual defect on confrontation and pupils round, equal, reactive to light CN 3, 4, 6 - extra-ocular movements intact and no nystagmus CN 5 - facial sensation intact CN 7 - no facial asymmetry CN 8 - intact hearing CN 9, 10 - palate symmetric, normal gag CN 11 - good shoulder shrug CN 12 - tongue midline MOTOR: Strength was at least antigravity throughout, Pronator drift was absent and There were no abnormal movements SENSATION: intact and symmetric to pinprick, light touch, vibration and joint position GAIT: stable, no ataxia and can perform tandem walking COORDINATION: no ataxia with finger to nose testing and heel to leggett testing REFLEXES: cannot assess over telemedicine NIH Stroke Scale: 1a. Level of Consciousness: alert = 0 1b. LOC Questions: (month, age): both correct = 0 1c. LOC Commands (open and close eyes, make fist and let go using non-paretic hand): obeys both correctly = 0 2. Best Gaze (eyes open and patient follows examiner's finger or face): normal = 0 3. Visual (visual threat or finger counting in each quadrant): no loss = 0 4. Facial Palsy (show teeth, raise eye brows and squeeze eyes shut, or grimace symmetry in a comatose patient): normal = 0 5a. Motor Arm (extend arm (palms down) to 90 degrees and score drift/movement (10 seconds) - Left: no drift = 0 5b. Motor Arm: (extend arm (palms down) to 90 degrees and score drift/movement (10 seconds) - Right: no drift = 0 6a. Motor Leg (elevate leg 30 degrees and score drift/ movement (5 seconds) - Left: no drift = 0 6b. Motor Leg (elevate leg 30 degrees and score drift/ movement (5 seconds) - Right: no drift = 0 7. Limb Ataxia (finger to nose, heel down leggett): absent = 0 8. Sensory (pin prick to face, arm, trunk and leg, compare side to side): normal = 0 9. Best Language: no aphasia = 0 10. Dysarthria (evaluate speech clarity by patient repeating listed words): normal articulation = 0 11. Extinction and Inattention: no neglect = 0 Total: 0 Results & Data Vital Signs (Past 12 Hours) Vital Signs Temp Pulse Pulse Resp BP Pulse Ox Pulse Ox 12/17/24 11:46 36.6 C 62 18 136/93 94 12/17/24 08:31 36.4 C L 63 20 123/85 95 12/17/24 04:55 72 12/17/24 03:29 72 12/17/24 03:28 36.4 C L 70 18 159/89 H 96 12/17/24 02:43 95 12/17/24 02:40 36.4 C L 64 18 159/89 H 95 12/17/24 02:40 36.4 C L 64 18 159/89 H 95 O2 Del Method O2 Del Method 12/17/24 11:46 Room Air 12/17/24 08:31 Room Air 12/17/24 04:55 12/17/24 03:29 12/17/24 03:28 Room Air 12/17/24 02:43 Room Air 12/17/24 02:40 Room Air 12/17/24 02:40 Room Air Laboratory Results Laboratory Results - last 24 hr 12/16/24 12/16/24 12/17/24 20:25 20:31 05:27 WBC 7.68 6.17 RBC 4.67 4.20 Hgb 14.4 12.8 POC Hgb 15.0 Hct 42.0 38.5 POC Hct 44 MCV 89.9 91.7 MCH 30.8 30.5 MCHC 34.3 33.2 RDW Std Deviation 42.2 42.9 RDW Coeff of Gabriela 13.0 13.0 Plt Count 251 203 MPV 8.3 L 8.6 L Immature Gran % (Auto) 0.1 0.2 Neut % (Auto) 41.7 46.6 Lymph % (Auto) 45.2 38.9 Treasure % (Auto) 8.6 8.8 Eos % (Auto) 3.6 4.7 Baso % (Auto) 0.8 0.8 Neut # (Auto) 3.20 2.88 Lymph # (Auto) 3.47 H 2.40 Treasure # (Auto) 0.66 H 0.54 Eos # (Auto) 0.28 0.29 Baso # (Auto) 0.06 0.05 Immature Gran # (Auto) 0.01 0.01 PT 9.7 INR 0.9 APTT 26 PTT Ratio 1.0 POC Sodium 141 Sodium 139 140 POC Potassium 3.3 Potassium 3.3 L 3.8 POC Chloride 100 L Chloride 102 107 Carbon Dioxide 31 27 POC Total CO2 25 Anion Gap 6 6 POC Anion Gap 20.0 POC BUN 14 BUN 13 12 Creatinine 0.89 0.67 POC Creatinine 1.0 Est Cr Clr Drug Dosing 68.3 89.7 eGFR 72.35 97.54 BUN/Creatinine Ratio 14.6 17.9 Glucose 81 97 POC Glucose (other) 85 Estimat Average Glucose 120 Hemoglobin A1c 5.8 H Calcium 9.7 8.9 POC Ioniz Calcium Woody 1.18 Magnesium 1.9 Total Bilirubin 0.3 AST 17 ALT 18 Alkaline Phosphatase 84 Troponin I High Sens 3.9 Total Protein 8.1 Albumin 4.7 Globulin 3.4 Albumin/Globulin Ratio 1.4 Triglycerides 188 H Cholesterol 302 H LDL Cholesterol, Calc 226 VLDL Cholesterol, Calc 38 H HDL Cholesterol 38 Cholesterol/HDL Ratio 7.9 H 12/17/24 09:40 WBC RBC Hgb POC Hgb Hct POC Hct MCV MCH MCHC RDW Std Deviation RDW Coeff of Gabriela Plt Count MPV Immature Gran % (Auto) Neut % (Auto) Lymph % (Auto) Treasure % (Auto) Eos % (Auto) Baso % (Auto) Neut # (Auto) Lymph # (Auto) Treasure # (Auto) Eos # (Auto) Baso # (Auto) Immature Gran # (Auto) PT INR APTT PTT Ratio POC Sodium Sodium POC Potassium Potassium POC Chloride Chloride Carbon Dioxide POC Total CO2 Anion Gap POC Anion Gap POC BUN BUN Creatinine POC Creatinine Est Cr Clr Drug Dosing eGFR BUN/Creatinine Ratio Glucose POC Glucose (other) Estimat Average Glucose Hemoglobin A1c Calcium POC Ioniz Calcium Woody Magnesium Total Bilirubin AST ALT Alkaline Phosphatase Troponin I High Sens < 2.3 Total Protein Albumin Globulin Albumin/Globulin Ratio Triglycerides Cholesterol LDL Cholesterol, Calc VLDL Cholesterol, Calc HDL Cholesterol Cholesterol/HDL Ratio Diagnostic Findings CT scan of the head shows no acute ischemic changes. CTA of the head and neck showed no flow-limiting stenosis minimal athero-. MRI of the brain shows no acute ischemic infarcts. No structural abnormalities, minimal white matter changes Echocardiogram report is pending Medications Administered NSR
[2024-12-17 15:53] VITALS: BP 149/96; RESP 20; TEMP 98.1
[2024-12-17] MEDS ORDERED: STROKE PATIENT DISCHARGE STA (16:06)
--- NOTE | 2024-12-17 16:06 | Discharge Summary ---
Discharge Summary Date of Service December 17, 2024 Principal Dx & Hospital Course #1 = Principal Diagnosis (1) Word finding difficulty: Duong Pacheco is a 64-year-old female with past medical history significant for familial hypercholesterolemia, hyperlipidemia, hypertension, obesity, history of endometrial cancer admitted for with strokelike symptoms marked by word finding difficulty and temporary amnesia. Neurology evaluated patient who felt it was likely related to migraine given the description, however, TIA cannot entirely be excluded. ECHO was with EF 60-65%; EKG was with out arrhythmia and same on telemetry. MRI of the brain shows no evidence of acute ischemia and no evidence of previous ischemic insults. CTA shows minimal atherosclerotic disease. Cholesterol panel revealed total cholesterol of 302 and LDL of 226. Patient states she has only trial atorvastatin as far as she recalls and then transitioned to repatha, but does not believe she ever trialed another statin formulation. She is currently only on zetia. She agreed to rosuvastatin trial. On day of discharge, patient with without neurologic deficit, eating well and ambulating without difficulty. Patient will continue zetia,start rosuvastatin and asa, and is recommended to barry ve ZIO patch. #Stroke like episode, word-finding difficulty #history of migraine cannot exclude TIA CT head, CTA head and neck unremarkable MRI scan without acute infarct Echo with EF 60-65%, diastolic dysfunction, LVH Telemetry negative reviewed neuro recs Start daily aspirin start rosuvastatin 20mg daily Zio patch with pcp For migraine prevention, recommend magnesium glycinate 400 mg daily if tolerated bedtime and consider riboflavin 400 mg daily in the morning as tolerated. #History of hyperlipidemia On Zetia started on rosuvastatin close pcp monitoring #Hypertension Hydrochlorothiazide metoprolol succinate continue #History of endometrial cancer Recurrent Status post robotic assisted laparoscopic hysterectomy with bilateral salpingo- oophorectomy in January 2021 Status post chemo no longer on letrozole Notes For Next Care Provider [ ] Consider OP Zio patch [ ] Follow up lipid panel in 4-6 weeks, consider alternatives if not tolerating rosuvastatin Medication Changes From Visit Start daily aspirin 81 mg Start rosuvastatin 20mg daily For migraine prevention, recommend magnesium glycinate 400 mg daily if tolerated bedtime and consider riboflavin 400 mg daily in the morning as tolerated. Admission HPI Per Admitting Provider 64-year-old female with past medical history significant for familial hypercholesterolemia, hyperlipidemia, hypertension, obesity, history of endometrial cancer presents with strokelike symptoms. Around 7:30 PM patient suddenly had word finding difficulty and was having some memory issues like not remembering family members names and it lasted about 15 minutes and subsided. Currently back to normal. During the episode she has some headache. Now she is getting on and off earaches. Denies any fevers. No difficulty swallowing. No runny nose or sore throat. No cough. Denies chest pain. Denies shortness of breath. No nausea. No abdominal pain. Normal bowel and bladder movements. Currently resting comfortably and hemodynamically stable. Past medical history. As mentioned above Past surgical history. Breast biopsy. Colonoscopy dental surgery. Robotic laparoscopic hysterectomy with removal of tubes and ovaries. Bilateral cataracts. Family history. . No smoking. Alcohol once a month. No drug use. Social history. Brother had DVTs. Maternal cousin had breast cancer. Paternal cousin had breast cancer. Maternal grandmother had breast cancer. Father had IN. Father had Hodgkin's lymphoma. Paternal grandfather had Hodgkin's lymphoma. Mother had hypertension. Admission Exam Per Admitting Provider General- Not in distress Head- atraumatic Eyes- PERRL. ENT- oropharynx clear, external ear canal no erythema seen Neck- supple, no JVD. Lungs- clear to auscultation no wheezing or crackles. Heart- regular rate and rhythm; no murmur, no gallop. Abdomen- normal bowel sounds, soft, nontender, no distension Extremities- no pretibial edema, no erythema seen Neuro- alert, oriented PERRL, EOMI; no facial palsy; no dysarthria; motor 5/5 bilaterally; no pronator drift, co ordination of movements normal, sensations intact, position sense intact Discharge Exam Constitutional WD/WN, vitals as above Respiratory normal respiratory effort, lungs clear to auscultation Cardiovascular RRR, no murmur, no edema Gastrointestinal (Abdomen) normal bowel sounds, soft, nontender, no hepatosplenomegaly Musculoskeletal no cyanosis or clubbing, extremities motor strength 5/5 Neurologic PERRL, EOMI, accommodation nl, no face palsy, no dysarthria Updated Medication List Medication Instructions Recorded Confirmed Type ezetimibe 10 mg tablet 10 mg PO QAM 12/16/24 12/16/24 History hydrochlorothiazide 25 mg tablet 25 mg PO QAM 12/16/24 12/16/24 History metoprolol succinate 25 mg 25 mg PO QAM 12/16/24 12/16/24 History tablet,extended release 24 hr multivitamin with iron 1 tab PO DAILY 12/16/24 12/16/24 History Pharmacist Discharge Consult 1 ea Not Applicable UD PRN ##0 12/17/24 Rx [Pharmacist Discharge Med Rec Consult] aspirin 81 mg tablet,delayed 81 mg PO QAM 30 days #30 tabs 12/17/24 Rx release rosuvastatin 20 mg tablet 20 mg PO QAM 30 days #30 tabs 12/17/24 Rx Hospital Stay Data Consultations 12/16/24 21:51 ED Decision to Admit Stat 12/17/24 08:00 Consult Neurology Routine Diagnostic Imagining Performed 12/16/24 20:24 CT angio head w con Stat CT angio neck with con Stat CT head/brain wo con Stat 12/17/24 09:00 MR brain wo con Routine Pending Results Patient Have Any Pending Studies at Discharge: No Discharge Instructions Given to Patient (Per Discharging Provider) You were admitted to the hosptial for concern for stroke. Neurology evaluated you and felt the symptoms may be related to migraine given the description although cannot entirely exclude a TIA. MRI of the brain shows no evidence of acute ischemia, no evidence of previous ischemic insults. Echocardiogram shows normal heart function with some thickening of the heart muscle, but likely related to ongoing high blood pressure. Your EKG is normal sinus rhythm. You will need to discuss a special heart monitor to check for abnormal rhythms at home called a Zio patch with your PCP. Please start an aspirin 81mg daily Please start rosuvastatin 20mg daily and discuss close follow up for cholesterol control and monitoring with your pcp For migraine prevention, recommend magnesium glycinate 400 mg daily if tolerated bedtime. Consider riboflavin 400 mg daily in the morning as tolerated. Total Time Total Time Spent Total Time Spent (In Minutes): 45
[2024-12-17 16:17] VITALS: PULSE 64
--- NOTE | 2024-12-20 11:33 | Pharmacy Report ---
Pharmacist Stroke Counseling - Date of Service December 20, 2024 - Scope: Pharmacy has been consulted to provide medication discharge counseling for this patient admitted with possible transient ischemic attack as per the Pharmacist Discharge Counseling for Stroke Patients Protocol. - Medications on Discharge: Home Medications Medication Instructions Recorded Confirmed ezetimibe 10 mg tablet 10 mg PO QAM 12/16/24 12/16/24 hydrochlorothiazide 25 mg tablet 25 mg PO QAM 12/16/24 12/16/24 metoprolol succinate 25 mg 25 mg PO QAM 12/16/24 12/16/24 tablet,extended release 24 hr multivitamin with iron 1 tab PO DAILY 12/16/24 12/16/24 New Rx's Medication Instructions Recorded Pharmacist Discharge Consult 1 ea Not Applicable UD PRN ##0 12/17/24 [Pharmacist Discharge Med Rec Consult] aspirin 81 mg tablet,delayed 81 mg PO QAM 30 days #30 tabs 12/17/24 release rosuvastatin 20 mg tablet 20 mg PO QAM 30 days #30 tabs 12/17/24 - Action: The above medications, specifically ones for stroke treatment/prophylaxis, have been reviewed in detail with the patient and/or patient branch customer service representative(s) prior to discharge. This includes indication, common adverse reactions, drug interactions, and medication administration. Medication counseling has been employed using the teach-back method to ensure understanding. - Outcome: The patient and/or patient branch customer service representative(s) have demonstrated understanding of the medications. Thank you for allowing pharmacy to be involved in the care of this patient. Please call [phone] with any additional questions
== END 2024-12-17 16:45 | disposition home or self-care (01) | DRG 93 ==
LOC: ED 20:10 → INTOOBSV 12-17 01:06 → 4W 12-17 01:06